=== PATIENT | male | born 1935 | race Caucasian/White ===

== ENCOUNTER → 2016-12-05 | Outpatient (CLI) | payer OTHER ==
[~2016-12-05] MED LIST: ASPI81TA28 PO; CARV6.252 PO; CEPH500C2 PO; LISI-729 PO; PRAV40TA2 PO; RIVA1TAB4 PO
[2016-12-05 13:30] LABS: INR 1.2 (0.9-1.1); PROTHROMBIN TIME (PATIENT) 12.7 SECONDS (9.0-12.0)
[2016-12-05 13:57] LABS: MEAN CELL VOLUME 90.7 fL (80-100); MEAN CORPUSCULAR HEMOGLOBIN 31.3 pg (25-34); MEAN CORPUSCULAR HGB CONC 34.5 g/dl (32-36); MEAN PLATELET VOLUME 12.2 fL (7.4-10.4); PLATELET COUNT 121 K/uL (130-400); PLT ESTIMATE DECREASED; RED BLOOD COUNT 4.41 M/uL (4.7-6.1); WHITE BLOOD COUNT 7.43 K/uL (4.8-10.8)
[2016-12-05 14:07] LABS: BLOOD UREA NITROGEN 14 mg/dl (7-18); BUN/CREATININE RATIO 17.9 (10-20); CALCIUM 8.7 mg/dl (8.5-10.1); CARBON DIOXIDE 28 mmol/L (21-32); CHLORIDE 109 mmol/L (98-107); CREATININE 0.78 mg/dl (0.60-1.40); GLUCOSE 92 mg/dl (70-99); POTASSIUM 4.2 mmol/L (3.5-5.1); SODIUM 141 mmol/L (136-145)
== END | disposition home or self-care (01) ==
LOC: C.LAB1850 11:58
PROVIDERS: ATTEND Internal Medicine Clinical Cardiac Electrophysiology
DX: I42.9 Cardiomyopathy, unspecified (principal)

== ENCOUNTER 2016-12-13 06:27 | Observation (INO) | payer OTHER ==
[~2016-12-13] VITALS: Ht 172.7 cm; Wt 75.1 kg
[2016-12-13] VITALS (18 sets, daily range): BP systolic 92–154; BP diastolic 60–102; PULSE 57–85; TEMP 36.4–37.2; O2SAT 92–99; Ht 172.7 cm; Wt 75.1 kg
[~2016-12-13 06:27] MED LIST changes: +CEFAZOLIN 1000MG/55 ML D5W IV SCH; -CEPH500C2 PO; +LACTATED RINGER'S 1000ML 1,000 ML IV SCH
[2016-12-13] MEDS ORDERED: FENTANYL CITRATE INJ 50 MCG/1 ML 2 ML VIAL ONE ×2 (07:26→16:54)
[2016-12-13] MEDS ORDERED: MIDAZOLAM HCL 5 MG/ML 1 ML VIAL ONE ×2 (07:26→16:54)
[2016-12-13] MEDS ORDERED: BACITRACIN 50000 UNIT VIAL ONE ×2 (07:27→16:42)
[2016-12-13] MEDS ORDERED: BUPIVACAINE 0.5 % 5 MG/1 ML MPF 30ML VIAL ONE ×2 (07:27→16:49)
[2016-12-13] MEDS ORDERED: LIDOCAINE HCL 1% 20 ML VIAL ONE ×2 (07:27→16:42)
--- NOTE | 2016-12-13 07:36 | History & Physical Bridge Note ---
H&P Re-Evaluation Bridge Note: I have examined the patient, reviewed the History & Physical and in the interval since the performance of the History & Physical I have noted the following changes of clinical significance: Discussed R/B/A with the patient and family. No changes noted
--- NOTE | 2016-12-13 07:38 | Procedure Note ---
Pre-Mod Sedation Assessment General Date of Moderate Sedation: Dec 13, 2016. Vital Signs: Vital Signs Past 12 Hours Date Time Temp Pulse Resp B/P (MAP) Pulse Ox O2 Delivery O2 Flow Rate FiO2 12/13/16 06:38 36.4 60 18 121/78 (92) 98 Room Air Review Cardiovascular: regular rate, rhythm Airway Class: III Pre-Sedation Airway Assessment Oral Cavity: Dentures Able to Visualize Vocal Cords: No Short Thick Neck: No Hx of Sleep Apnea: No Smoking Status: Never Smoker Mallampati Classification: Class III ASA Classification: Class III Procedure Planning Contraindications-for Mod Sed: None Yes Notes The planned sedation has been discussed with the patient and consent obtained. I have identified the patient, determined the appropriateness of sedation and have assessed the patient immediately prior to the procedure. All medicine(s) and interventions are by my order.
[2016-12-13] MEDS ORDERED: ACETAMINOPHEN 325 MG TAB PO PRN (10:00)
[2016-12-13] MEDS ORDERED: OXYCODONE HCL IR 5 MG TAB (IMMEDIATE RELEASE) PO PRN (10:15)
[2016-12-13] MEDS ORDERED: IV FLUIDS COMPLETED PRN (13:45)
[2016-12-13] MEDS ORDERED: PNEUMOCOCCAL ADMINISTRATION CHARGE ONE (14:00)
[2016-12-13] MEDS ORDERED: PNEUMOCOCCAL POLYSACCHARIDES 25 MCG/0.5 ML VIAL/SYR IM. ONE (14:00)
--- NOTE | 2016-12-13 16:07 | Procedure Note ---
Post-Mod Sedation Assessment General Date of Moderate Sedation Dec 13, 2016. Vital Signs: Vital Signs Past 12 Hours Date Time Temp Pulse Resp B/P (MAP) Pulse Ox O2 Delivery O2 Flow Rate FiO2 12/13/16 15:53 36.4 72 18 140/80 (100) 97 12/13/16 11:45 36.4 60 17 127/84 (98) 98 Room Air 12/13/16 11:20 60 16 141/86 (104) 99 Room Air 12/13/16 11:20 36.4 60 17 127/84 98 Room Air 12/13/16 11:01 60 18 127/75 (92) 95 Room Air 12/13/16 10:45 60 18 98/72 (81) 95 Room Air 12/13/16 10:30 60 18 128/72 (90) 95 Room Air 12/13/16 10:15 60 16 116/71 (86) 97 Room Air 12/13/16 10:00 60 16 104/62 (76) 97 Room Air 12/13/16 09:55 Room Air 12/13/16 09:50 Room Air 12/13/16 09:45 60 16 106/68 (81) 97 Room Air 12/13/16 06:38 36.4 60 18 121/78 (92) 98 Room Air Review - Discharge Criteria Vital Signs Stable: Yes Alert/Oriented/Conversant: Yes Returned to Baseline Mental St: Yes Nausea Absent/Minimal: Yes Pain/Discomfort/Absent/Minimal: Yes Normal/Baseline Respirations: Yes Active Bleeding?: No Pt Received D/C Instructions: N/A Prescriptions Given: None Specific Proced. D/C Criteria Distal Pulses Present (Cardiac: N/A Groin site assessed-Card Cath: N/A Voided Prior To Discharge: N/A Discharged Patients Adult Escort/Transportation: Yes
[2016-12-13] MEDS: CEFAZOLIN IV 1,000 MG in DEXTROSE 5% 50ML 50 ML IV SCH (16:08)
--- NOTE | 2016-12-13 16:14 | Procedure Note ---
Procedure Note Date of Service Dec 13, 2016. Procedure Note Procedure performed: Upgrade of dual-chamber permanent pacemaker to biventricular ICD Staff loan review analyst:Ambrose James Indication: The patient is an 81-year-old gentleman who previously undergone implantation of a dual-chamber permanent pacemaker for AV block. He was noted recently to have evidence of reduced LV systolic function is well symptoms associated with 100 percent ventricular pacing. He has been on guideline directed medical therapy. He has not had any revascularization in this 90 days nor suffer myocardial infarction past 40 days. He has an anticipated longevity greater than 1 year. Based on his degree of LV systolic function is need for continued ventricular pacing he was advised to consider an upgrade to a biventricular ICD. He has noted be in permanent atrial fibrillation. Procedure in detail: The patient was informed of the risks benefits and alternatives to the intended procedure and he wished to proceed. He was taken to the electrophysiology suite in a fasting state. A preoperative antibiotic had been administered. The patient was monitored electrocardiographically throughout today's procedure and conscious sedation was administered per protocol. The left upper pectoral area is prepped and draped in usual sterile fashion. This area was anesthetized using subcutaneous menstruation of a xylocaine solution. An incision was made at this site and carried down to the previously implanted pulse generator. Electrocautery was also employed for dissection as well as for hemostasis. The previously implanted device and leads within free from the surrounding scar tissue. A partial capsulotomy was performed.. Subsequent to this maneuver the left axillary vein was accessed using modified Seldinger technique. Sheaths were placed over guidewires at this site use salt a passage of the pacing leads to the respective chambers under fluoroscopic guidance. This included right ventricular lead. Adequate sensing and threshold parameters were obtained prior to Active fixation of the lead to the endocardial surface. The proximal portion leads were then sutured the prepectoral fascia using nonabsorbable suture. A 2nd sheath was used to facilitate passage of the guiding catheter for engagement of the coronary sinus. The mid coronary sinus venography was then performed in order to identify suitable target vessel. Standard guidewire techniques were employed in order to deliver the pacing lead to the target vessel. Adequate sensing and threshold parameters were obtained in the absence of diaphragmatic stimulation confirmed prior to removal of the guiding sheath. The proximal portion of this lead was also sutured to the prepectoralis fascia. The device pocket was irrigated with antibiotic solution. The leads were then attached to the device. The device and leads were then placed in the pocket and pocket was closed in 3 layers of absorbable suture. Steri-Strips and sterile dressing were applied. The device was tested noninvasively prior to conclusion of the procedure. The patient tolerated procedure well there no immediate complications. Equipment used: New pulse generator: [employer]. Model number G1 4 8. Serial number [id number] New right ventricular lead: [employer]. Model number 0295. Serial 4. [id number] Retained right atrial lead: [employer]. Model 4. 479. Serial 4. [id number] Retained and capped right ventricular lead. [employer]. Model 4. 456. Serial 4. [id number] Explanted pulse generator: [employer]. Model number L1 0 1. Serial 7. [id number] Measure data: Right atrial lead: Patient was in permanent atrial fibrillation. Sensing of the atrial fib waves was 2.0 millivolts. Pacing impedance was 400 Ohms Right ventricular lead: R-waves measured 14.7 millivolts. Pacing threshold was 0.6 volts at 0 point 4 milliseconds with a pacing impedance of 619 Ohms Left ventricular lead: R-waves measured 25 millivolts. Pacing threshold was 2.6 volts at 1 millisecond with a pacing impedance of 1435 Ohms Impression: Successful upgrade of dual-chamber pacemaker to biventricular ICD
[2016-12-13] MEDS ORDERED: KEFZOL SPECIAL PROCEDURE STOCK 1 GM ADDVIAL IV ONE (16:47)
[2016-12-13] MEDS ORDERED: PRAVASTATIN SOD 40 MG TAB PO SCH (17:00)
--- NOTE | 2016-12-13 18:54 | Procedure Note ---
Procedure Note Date of Service Dec 13, 2016. Procedure Note Procedure performed: Evacuation of hematoma Staff undercoat sprayer:Ambrose James Indication: The patient is an 81-year-old gentleman who earlier this morning underwent revision of his pacemaker with an upgrade to a biventricular ICD. He was noted late in the afternoon who had developed a sizable hematoma. There was evidence of active bleeding at the incision in he was advised to undergo pocket exploration. Procedure detail: The patient was informed of the risks benefits and alternatives to the intended procedure he understood such which proceed. He was taken to the electrophysiology suite. Conscious sedation was administered per protocol the patient was monitored electrocardiographically throughout today's procedure. A preoperative antibiotic was also administered. The upper chest area was prepped and draped in usual sterile fashion. The previous incision was subsequently opened with sharp dissection. This was carried down to the device using electrocautery. Electrocautery was also employ for hemostasis. Hematoma was evacuated. The pocket was evaluated for evidence of bleeding and any small vessels were subsequently cauterized. The pocket was subsequently irrigated with saline and antibiotic solution. I hemostatic agent was also placed in the pocket. The device and leads were then placed back in the pocket. The pocket was subsequently closed with 3 layers of absorbable suture. Steri-Strips, sterile dressing and a pressure dressing were also applied. Patient tolerated procedure well there no immediate complications. Impression: Successful evacuation of pocket hematoma.
[2016-12-13] MEDS: CARVEDILOL 12.5 MG TAB PO SCH (21:10)
[2016-12-14] MEDS: CEFAZOLIN IV 1,000 MG in DEXTROSE 5% 50ML 50 ML IV SCH (00:42)
[2016-12-14 03:26] VITALS: BP 105/63; PULSE 75; TEMP 36.9; O2SAT 96
--- NOTE | 2016-12-14 06:40 | DIAGNOSTIC IMAGING REPORT ---
CHEST 2 VIEWS ROUTINE CLINICAL HISTORY: EXACT TIME ORDERED Evaluate for pneumothorax and lead placement COMPARISON STUDY: No previous studies for comparison. FINDINGS: . Bipolar cardiac pacemaker in good position. Leads are unremarkable in terms of location. Lungs are clear. No evidence pneumothorax. IMPRESSION: Permanent bipolar cardiac pacemaker in good position. No evidence of pneumothorax. The above report was generated using voice recognition software. It may contain grammatical, syntax or spelling errors. Electronically signed by: Jeffry Russo M.D. 12/14/2016 6:39 AM Dictated Date/Time: 12/14/2016 6:39 AM
[2016-12-14 08:26] VITALS: BP 118/73; PULSE 77; TEMP 37; O2SAT 97
[2016-12-14] MEDS: CARVEDILOL 12.5 MG TAB PO SCH (08:28)
[2016-12-14] MEDS ORDERED: ASPIRIN 81 MG ECTAB PO SCH (09:00)
[2016-12-14] MEDS ORDERED: LISINOPRIL 5 MG TAB PO SCH (09:00)
[2016-12-14] MEDS ORDERED: CEPH500C2 PO (09:27)
--- NOTE | 2016-12-14 09:29 | Discharge Instructions ---
Discharge Instructions Date of Service Dec 14, 2016. Admission Reason for Admission: CHF Discharge Discharge Diagnosis / Problem: CHF Discharge Goals Goal(s): Improve function Activity Recommendations Activity Limitations: as noted below Lifting Limitations: none Exercise/Sports Limitations: until after follow-up appointment May Resume Sexual Activity: when tolerated Shower/Bathe: keep incision dry Driving or Machine Use: resume 1 day after discharge No0 lifting left arm above shoudler or behind neck for 6 weeks. Keep wound dry and steri-strip intact until f/u next week. May remove outer bulky dressing in AM. . Current Hospital Diet Patient's current hospital diet: AHA Diet (Heart Healthy) Discharge Diet Recommended Diet: AHA Diet (Heart Healthy) Pending Studies Studies pending at discharge: no Medical Emergencies . Who to Call and When: Medical Emergencies: If at any time you feel your situation is an emergency, please call 911 immediately. . Non-Emergent Contact Non-Emergency issues call your: [employer] Call Non-Emergent contact if: you have a fever, temperature is above 100.5, your pain is not controlled, your pain is worsening, your pain is unusual for you, your pain is concerning you, wound has increased drainage, wound has increased redness, wound has increased pain, you have any medication questions . . "Provider Documentation" section prepared by Simba James. . VTE Core Measure Inpt VTE Proph given/why not?: Treatment not indicated
[2016-12-14] MEDS ORDERED: CEFAZOLIN SOD 1000MG/55 ML D5W IV ONE (09:30)
[2016-12-14] MEDS ORDERED: CEFAZOLIN IV 1,000 MG in DEXTROSE 5% 50ML 50 ML IV SCH (10:00)
[2016-12-14 10:57] VITALS: BP 118/73; PULSE 77; TEMP 37; O2SAT 97
--- NOTE | 2016-12-18 08:45 | Discharge Summary ---
Discharge Summary Admission Date: Dec 13, 2016 at 10:08 Discharge Date: Dec 14, 2016 Discharge Disposition: Home Primary Diagnosis: Congestive heart failure Secondary Diagnoses/Problems: Social History Problems: (1) Status post Mohs surgery Status: Acute Procedures: 1. Upgrade of dual-chamber pacemaker to biventricular ICD. 2. Evacuation of pocket hematoma Discharge Instructions Last Recorded Wt (Kilograms): 75.100 Activity Recommendations: limitations as noted below Return to School/Work: no limitations Diet At Discharge: resume previous diet Allergies: Coded Allergies: No Known Allergies (Unverified , 03/08/15) Discharge Medications: Resume previous medications with the exception of Xarelto. Five-day treatment course of Keflex. Home Health Services: none Special Care: Call your doctor if: * Temperature above 101 degrees * Pain not relieved by pain medicine ordered * There is increased drainage or redness from any incision * You have any unanswered questions or concerns. Avoid all tobacco products. If you need help to stop smoking, call [place]'s FREE QUITLINE at . This is a free call. Admission HPI The patient is an 81-year-old gentleman with a prior history of cardiac conduction disease who had undergone implantation of a dual-chamber permanent pacemaker. He was noted on routine follow-up to have reduction in the left ventricular function and be subjected to 100% right ventricular pacing. Based on his reduced ejection fraction and need for pacing is felt to be a good candidate for an upgrade to a biventricular ICD. Admission Physical Exam Additional Comments: At the time of discharge the patient does not have any evidence of hematoma or drainage from the incision. Hospital Course The patient was admitted on the 13 of December and underwent an uncomplicated upgrade to a biventricular ICD. Several hours after the procedure the patient was noted to have rapid development of a hematoma at the implant site. Based on the rapid nature of the presumed bleeding and size of the hematoma he was brought urgently back to the electrophysiology suite for exploration of the pocket. The pocket was evacuated in all bleeding addressed. Patient was sent back to the unit for additional antibiotics and monitoring. On the day of discharge there was no evidence of hematoma. An x-ray demonstrated good lead position without evidence of pneumothorax. Device interrogation revealed normal device function with stable lead parameters. Total time spent on discharge = This includes examination of the patient, discharge planning, medication reconciliation, and communication with other providers.
== END 2016-12-14 11:34 | disposition home or self-care (01) ==
LOC: C.ACU 06:27 → EDBEDREQ 09:48 → C.2E 10:08 → INTOOBSV 10:08 → ENRESERV 10:44
PROVIDERS: ADMIT Internal Medicine Clinical Cardiac Electrophysiology; ATTEND Internal Medicine Clinical Cardiac Electrophysiology
DX: I25.5 Ischemic cardiomyopathy (principal); I65.29 Occlusion and stenosis of unspecified carotid artery; I51.9 Heart disease, unspecified; I25.2 Old myocardial infarction; Z95.0 Presence of cardiac pacemaker; I48.0 Paroxysmal atrial fibrillation; I25.10 Atherosclerotic heart disease of native coronary artery without angina pectoris; E78.5 Hyperlipidemia, unspecified; Z95.5 Presence of coronary angioplasty implant and graft; Z98.49 Cataract extraction status, unspecified eye; Z82.49 Family history of ischemic heart disease and other diseases of the circulatory system; Z82.5 Family history of asthma and other chronic lower respiratory diseases; Z79.82 Long term (current) use of aspirin; Z79.01 Long term (current) use of anticoagulants

== ENCOUNTER 2020-11-27 03:19 | Inpatient (IN) ==
[2020-11-27] MEDS ORDERED: SODIUM CHLORIDE 0.9% 1000ML 1,000 ML IV ONE (03:34)
[2020-11-27] MEDS ORDERED: ONDANSETRON INJ 2 MG/ML 2 ML VIAL IV STA (03:34)
[2020-11-27] MEDS ORDERED: PANTOprazole 80 MG in DEXTROSE 5% 100 ML IV STA (03:34)
--- NOTE | 2020-11-27 03:37 | Emergency Department Note ---
Impression & Plan Small bowel obstruction, Bloody emesis, Femoral hernia ED Provider Note Name: ED HICKMAN Age: 85 Sex: M Arrives Via: Walk-In Informant: Patient, ED Provider: Nhan Becker MD Chief Complaint: Vomiting Impression: See Above Medical Decision Making: Pleasant 85 yr old male without history of abdominal surgery though has extensive cardiac history and on anticoagulation for afib. Worsening vomiting the last few days with inability to keep down food though able to tolerate his medications. This evenign with blood in emesis. Labs obtained and KUB concerning for obstructions. CT with SBO secondary to right femoral hernia. No evidence ischemia by CT. There is mild lactic elevation which I suspect is more dehydration related rather than ischemic gut at this time, especially given he does not in any way appear uncomfortable for something ischemic. NG tube placed with large gastric outs and patient feeling better with that. Protonix IV given as well. Gen Surg down to evaluate patient and will be admitted to medicine given his complex medical history. Prior Medical Record and Triage/Nursing Notes reviewed by Me Additional history obtained from chart. Differentials:Gastroenteritis, food borne illness, infections, appendicitis, diverticulitis, inflammatory bowel disease, obstruction, GI bleed, biliary pathology, volvulus, as well as other pathologies. Vital Signs: reviewed and remarkable for no significant abnormalities Interventions: saline lock, zofran iv Labs:Reviewed and remarkable for no significant abnormalities Imaging:Radiologist interpretation reviewed by me: SBO transition point right femoral hernia Xray Results per my interpretation: KUB: Obstructive bowel pattern Consults:Sim Stevesnon PA-C Gen Surg, Dr Elisha Mathews Hospitalist Plan: Disposition:Hospitalization. Condition: Good History of Present Illness:85 yr old male arrives for evaluation of hematemesis. Patient with nausea, vomiting and weakness for the last 3 days. Gradually worsening. Unable to eat/drink due to vomiting. Associated with fatigue. Notes he vomited up blood this evening. No large amounts of blood, just streaked emesis. He is on Xarelto for afib. No fevers, chills, syncope, back pain, leg swelling, bruising, headache, chest pain, sob, nor other symptoms. No history of abdominal issues. No previous abdominal surgeries. ROS: See above HPI for pertinent positives & negatives. A total of 10 systems reviewed and were otherwise negative. Past Medical History:See Below Past Surgical History:See Below Family History:See Below Social History:See Below Home Medications:See Below Allergies:NKDA Vitals:Blood Pressure: 131/79, Pulse 72, RR 18, T 36.5C, O2 97% on RA Physical Exam: GENERAL: Patient is uncomfortable appearing and in minimal distress. EYES: No scleral icterus, unremarkable pupils. ENT: Mucous membranes moist, no nasal congestion. NECK: No masses appreciated, nomeningismus, trachea is midline. RESPIRATORY: No dyspnea. Clear to auscultation and equal bilaterally. No wheeze, no rhonchi. CARDIOVASCULAR: Irregular.No murmurs, rubs, gallops appreciated. GASTROINTESTINAL: Soft and mildly distended with hyperactive bowel, no significant TTP BACK: No midline tenderness, no CVA tenderness EXTREMITIES: Normal motion all extremities, no cyanosis, no edema. NEUROLOGIC: Alert and oriented, no acute motor or sensory deficits, no focal weakness, cranial nerves grossly intact. SKIN: No rash, no jaundice, no diaphoresis. PSYCH: Appropriate GCS: 15 ED Course: Times/Reassessments: much improved with NG tube Nhan Becker MD Past Med/Surg History Medical History (Updated 11/28/20 @ 06:17 by Nhan Becker MD) Atrial fibrillation HX OF PRIOR TO ICD IMPLANT Basal cell carcinoma of face Hearing deficit Hyperlipidemia Hypertension Myocardial Infarction 2007 Surgical History (Updated 11/27/20 @ 13:41 by Erendira Sandoval, DO) H/O bilateral cataract extraction History of cardiac cath 2008 @ [facility] History of colonoscopy History of heart artery stent 2008 X1 @ [facility] STENT FOLLOWS W DR. BAJWA IN [place], [place] History of tooth extraction ALL TEETH ON TOP ICD (implantable cardioverter-defibrillator) in place HX A FIB 12/13/2016 @ [facility] DR. BAEZ S/P Mohs surgery for basal cell carcinoma ON FACE Social History Smoking Status: Never smoker Second Hand Exposure: No; Hx Alcohol Use: No Hx Substance Use: No Preferred Language: Slovak Communication Ability: Effective Natural History Collections Curator Required: No Beliefs That Will Affect Care: None Current Living Situation: Spouse Feels Safe at Home: Yes Safety Concerns: Feels Safe At This Time Assistive Devices: Denture - Upper, Glasses and Hearing Aid - Bilateral Allergies Allergies Allergy/AdvReac Type Severity Reaction Status Date / Time No Known Allergies Allergy Verified 11/27/20 06:49 Home Meds Home Medications Medication Instructions Recorded Confirmed amoxicillin 500 mg capsule 2,000 mg PO UD PRN 12/11/17 11/27/20 carvedilol 12.5 mg tablet 12.5 mg PO BID 12/11/17 11/27/20 lisinopril 5 mg tablet 5 mg PO DAILY 12/11/17 11/27/20 peg 400-propylene glycol 0.4 %-0.3 1 drp OPHTHALMIC (EYE) TID PRN 12/11/17 11/27/20 % eye drops (Systane Ultra) pravastatin 40 mg tablet 40 mg PO HS 12/11/17 11/27/20 rivaroxaban 20 mg tablet (Xarelto) 20 mg PO PM 12/11/17 11/27/20 vit C,E,zinc,copper-hnkpt1j 250 1 cap PO QAM 12/11/17 11/27/20 mg-lutein 5 mg-zeaxanthin 1 mg capsule (Ocuvite Adult 50 Plus) ascorbic acid (vitamin C) 500 mg 500 mg PO QPM 02/03/18 11/27/20 tablet (Vitamin C) aspirin 81 mg tablet,delayed 81 mg PO QAM 02/03/18 11/27/20 release ferrous sulfate 325 mg (65 mg 325 mg PO BID 02/03/18 11/27/20 iron) tablet,delayed release pantoprazole 40 mg tablet,delayed 20 mg PO DAILY 11/27/20 11/27/20 release Results & Data (ED) Vital Signs Vital Signs - 24 hr 11/27/20 03:25 11/27/20 03:31 11/27/20 04:00 Temperature 36.5 C Temperature Source Oral Pulse Rate 77 80 78 Pulse Rate from SpO2 Sensor 68 72 Respiratory Rate 20 21 24 Blood Pressure 119/76 144/81 H 137/78 Blood Pressure Mean 90 102 97 Pulse Oximetry 97 95 97 Oxygen Delivery Method Room Air Sepsis New/Unexplained Change in Mental Status N/A Sepsis Action Taken by Nursing No Action Required Laboratory Data Result diagrams: 11/27/20 17:27 11/27/20 17:27 Lab Results 11/27/20 11/27/20 11/27/20 Range/Units 03:30 03:30 03:30 WBC 10.60 (4.8-10.8) K/uL RBC 4.94 (4.7-6.1) M/uL Hgb 16.2 (14.0-18.0) g/dL Hct 47.2 (42-52) % MCV 95.5 (80-100) fL MCH 32.8 (25-34) pg MCHC 34.3 (32-36) g/dL RDW Std Deviation 48.2 H (36.4-46.3) fL RDW Coeff of Taylor 13.7 (11.5-14.5) % Plt Count 148 (130-400) K/uL MPV 12.4 H (7.4-10.4) fL Neutrophils % (Manual) 32.2 % Lymphocytes % (Manual) 30.4 % Reactive Lymphs % (Man) 28.7 % Monocytes % (Manual) 8.7 % Neutrophils # (Manual) 3.41 (1.4-6.5) K/uL Total Absolute Neuts 3.41 (1.4-6.5) K/uL Lymphocytes # (Manual) 3.22 (1.2-3.4) K/uL Reactive Lymphs # 3.04 K/uL Total Abs Lymphocytes 6.26 H (1.2-3.4) K/uL Monocytes # (Manual) 0.92 H (0.11-0.59) K/uL Ovalocytes 1+ PT 16.1 H (9.0-12.0) Seconds INR 1.6 H (0.9-1.1) APTT 37.8 H (21.0-31.0) Seconds PTT Ratio 1.4 Sodium 141 (136-145) mmol/L Potassium 4.2 (3.5-5.1) mmol/L Chloride 107 (98-107) mmol/L Carbon Dioxide 29 (21-32) mmol/L Anion Gap 5.0 (3-11) BUN 43 H (7-18) mg/dl Creatinine 1.29 (0.6-1.4) mg/dl Est Cr Clr Drug Dosing Not Reportable Est GFR ( Amer) 58.6 ml/min Est GFR (Non-Af Amer) 50.6 ml/min BUN/Creatinine Ratio 33.6 H (10-20) Glucose 153 H (70-99) mg/dl Lactate (0.4-2.0) mmol/L Calcium 9.5 (8.5-10.1) mg/dl Magnesium 2.5 H (1.8-2.4) mg/dl Total Bilirubin 2.2 H (0.2-1) mg/dl Direct Bilirubin 0.6 H (0-0.2) mg/dl AST 37 (15-37) U/L ALT 26 (12-78) U/L Alkaline Phosphatase 69 (45-117) U/L Troponin I 0.038 (0-0.045) ng/ml Total Protein 7.9 (6.4-8.2) gm/dl Albumin 4.2 (3.4-5.0) gm/dl Lipase 64 L (73-393) U/L COVID-19 Eval Order SARS-CoV-2 (PCR) (Negative) Blood Type Antibody Screen 11/27/20 11/27/20 11/27/20 Range/Units 05:16 05:16 05:45 WBC (4.8-10.8) K/uL RBC (4.7-6.1) M/uL Hgb 14.6 (14.0-18.0) g/dL Hct 42.6 (42-52) % MCV (80-100) fL MCH (25-34) pg MCHC (32-36) g/dL RDW Std Deviation (36.4-46.3) fL RDW Coeff of Taylor (11.5-14.5) % Plt Count (130-400) K/uL MPV (7.4-10.4) fL Neutrophils % (Manual) % Lymphocytes % (Manual) % Reactive Lymphs % (Man) % Monocytes % (Manual) % Neutrophils # (Manual) (1.4-6.5) K/uL Total Absolute Neuts (1.4-6.5) K/uL Lymphocytes # (Manual) (1.2-3.4) K/uL Reactive Lymphs # K/uL Total Abs Lymphocytes (1.2-3.4) K/uL Monocytes # (Manual) (0.11-0.59) K/uL Ovalocytes PT (9.0-12.0) Seconds INR (0.9-1.1) APTT (21.0-31.0) Seconds PTT Ratio Sodium (136-145) mmol/L Potassium (3.5-5.1) mmol/L Chloride (98-107) mmol/L Carbon Dioxide (21-32) mmol/L Anion Gap (3-11) BUN (7-18) mg/dl Creatinine (0.6-1.4) mg/dl Est Cr Clr Drug Dosing Est GFR ( Amer) ml/min Est GFR (Non-Af Amer) ml/min BUN/Creatinine Ratio (10-20) Glucose (70-99) mg/dl Lactate (0.4-2.0) mmol/L Calcium (8.5-10.1) mg/dl Magnesium (1.8-2.4) mg/dl Total Bilirubin (0.2-1) mg/dl Direct Bilirubin (0-0.2) mg/dl AST (15-37) U/L ALT (12-78) U/L Alkaline Phosphatase (45-117) U/L Troponin I (0-0.045) ng/ml Total Protein (6.4-8.2) gm/dl Albumin (3.4-5.0) gm/dl Lipase (73-393) U/L COVID-19 Eval Order Covid19 at [facility] SARS-CoV-2 (PCR) NEGATIVE (Negative) Blood Type Antibody Screen 11/27/20 11/27/20 Range/Units 05:46 06:05 WBC (4.8-10.8) K/uL RBC (4.7-6.1) M/uL Hgb (14.0-18.0) g/dL Hct (42-52) % MCV (80-100) fL MCH (25-34) pg MCHC (32-36) g/dL RDW Std Deviation (36.4-46.3) fL RDW Coeff of Taylor (11.5-14.5) % Plt Count (130-400) K/uL MPV (7.4-10.4) fL Neutrophils % (Manual) % Lymphocytes % (Manual) % Reactive Lymphs % (Man) % Monocytes % (Manual) % Neutrophils # (Manual) (1.4-6.5) K/uL Total Absolute Neuts (1.4-6.5) K/uL Lymphocytes # (Manual) (1.2-3.4) K/uL Reactive Lymphs # K/uL Total Abs Lymphocytes (1.2-3.4) K/uL Monocytes # (Manual) (0.11-0.59) K/uL Ovalocytes PT (9.0-12.0) Seconds INR (0.9-1.1) APTT (21.0-31.0) Seconds PTT Ratio Sodium (136-145) mmol/L Potassium (3.5-5.1) mmol/L Chloride (98-107) mmol/L Carbon Dioxide (21-32) mmol/L Anion Gap (3-11) BUN (7-18) mg/dl Creatinine (0.6-1.4) mg/dl Est Cr Clr Drug Dosing Est GFR ( Amer) ml/min Est GFR (Non-Af Amer) ml/min BUN/Creatinine Ratio (10-20) Glucose (70-99) mg/dl Lactate 2.1 H* (0.4-2.0) mmol/L Calcium (8.5-10.1) mg/dl Magnesium (1.8-2.4) mg/dl Total Bilirubin (0.2-1) mg/dl Direct Bilirubin (0-0.2) mg/dl AST (15-37) U/L ALT (12-78) U/L Alkaline Phosphatase (45-117) U/L Troponin I (0-0.045) ng/ml Total Protein (6.4-8.2) gm/dl Albumin (3.4-5.0) gm/dl Lipase (73-393) U/L COVID-19 Eval Order SARS-CoV-2 (PCR) (Negative) Blood Type A Positive Antibody Screen NEGATIVE Administered Medications Pantoprazole Sodium 40 mg/ (Dextrose) 100 mls @ 20 mls/hr IV Q5H SENG Stop: 12/27/20 06:29 Last Admin: 11/28/20 04:41 Dose: 8 mg/hr, 20 mls/hr Documented by: [id number] Infusion: 11/28/20 04:39 Dose: 0 mg/hr, 0 mls/hr Documented by: [id number] Admin: 11/27/20 23:41 Dose: 8 mg/hr, 20 mls/hr Documented by: [id number] Infusion: 11/27/20 23:40 Dose: 0 mg/hr, 0 mls/hr Documented by: [id number] Admin: 11/27/20 18:29 Dose: 8 mg/hr, 20 mls/hr Documented by: [id number] Infusion: 11/27/20 17:44 Dose: 8 mg/hr, 20 mls/hr Documented by: [id number] Admin: 11/27/20 12:44 Dose: 8 mg/hr, 20 mls/hr Documented by: [id number] Infusion: 11/27/20 12:44 Dose: 8 mg/hr, 20 mls/hr Documented by: [id number] Admin: 11/27/20 08:39 Dose: 8 mg/hr, 20 mls/hr Documented by: [id number] Promethazine HCl 6.25 mg/ (Sodium Chloride) 50.25 mls @ 201 mls/hr IV Q6H PRN PRN Reason: Nausea And Vomiting Stop: 12/27/20 08:17 Last Infusion: 11/27/20 09:53 Dose: 0 mls/hr Documented by: [id number] Admin: 11/27/20 09:29 Dose: 201 mls/hr Documented by: [id number] Sodium Chloride (1/2 Nss) 1,000 mls @ 50 mls/hr IV .Q20H SENG Stop: 12/28/20 01:29 Last Admin: 11/28/20 01:59 Dose: 50 mls/hr Documented by: [id number] Metoprolol Tartrate (Metoprolol Tartrate 1 Mg/Ml Vial) 2.5 mg IV Q6 SENG Stop: 12/27/20 11:59 Last Admin: 11/28/20 06:09 Dose: 2.5 mg Documented by: [id number] Admin: 11/27/20 23:48 Dose: 2.5 mg Documented by: [id number] Admin: 11/27/20 18:29 Dose: 2.5 mg Documented by: [id number] Admin: 11/27/20 12:44 Dose: 2.5 mg Documented by: [id number] Discontinued Medications Pantoprazole Sodium 80 mg/ (Dextrose) 100 mls @ 400 mls/hr IV ONE STA Stop: 11/27/20 03:48 Last Infusion: 11/27/20 04:15 Dose: 0 mls/hr Documented by: [id number] Admin: 11/27/20 03:54 Dose: 400 mls/hr Documented by: [id number] Sodium Chloride (Nss 1000ml) 1,000 mls @ 999 mls/hr IV .Q1H1M ONE Stop: 11/27/20 04:34 Last Infusion: 11/27/20 05:22 Dose: 0 mls/hr Documented by: [id number] Admin: 11/27/20 03:45 Dose: 999 mls/hr Documented by: [id number] Lorazepam (Ativan) 0.5 mg in 1 mls @ 1 mls/min IV NOW STA Stop: 11/27/20 04:52 Last Admin: 11/27/20 04:59 Dose: 1 mls/min Documented by: [id number] Sodium Chloride (1/2 Nss) 1,000 mls @ 50 mls/hr IV .Q20H STA Stop: 11/28/20 01:31 Last Infusion: 11/28/20 01:58 Dose: 0 mls/hr Documented by: [id number] Admin: 11/27/20 05:36 Dose: 50 mls/hr Documented by: [id number] Phytonadione 1 mg/ Sodium (Chloride) 50.1 mls @ 100.5 mls/hr IV 0900 ONE Stop: 11/27/20 09:29 Last Infusion: 11/27/20 10:09 Dose: 0 mls/hr Documented by: [id number] Admin: 11/27/20 09:26 Dose: 100.5 mls/hr Documented by: [id number] Ioversol (Optiray 320 100ml) 93 ml IV ONCE ONE Stop: 11/27/20 04:50 Last Admin: 11/27/20 04:50 Dose: 93 ml Documented by: [id number] Ondansetron HCl (Ondansetron Inj 2 Mg/Ml 2 Ml Vial) 4 mg IV NOW STA Stop: 11/27/20 03:35 Last Admin: 11/27/20 03:54 Dose: 4 mg Documented by: [id number] Discharge Plan Visit Data Chief Complaint: Vomiting Stated Complaint: VOMITING BLOOD, ABD PAIN ED Provider: Nhan Becker Discharge Problem: Small bowel obstruction, Bloody emesis, Femoral hernia Patient Disposition: Admitted As Inpatient Discharge Instructions Interventions: ED Discharge Assessment Last Done: 11/27/20 07:15 Discharge Problem: Bloody emesis Qualifiers: Nausea presence: with nausea Qualified Code(s): K92.0 - Hematemesis Femoral hernia Qualifiers: Obstruction and gangrene presence: with obstruction but without gangrene Laterality: unilateral Recurrence: non-recurrent Qualified Code(s): K41.30 - Unilateral femoral hernia, with obstruction, without gangrene, not specified as recurrent
[2020-11-27 03:53] LABS: INR 1.6 (0.9-1.1); Partial Thromboplastin Ratio 1.4; Partial Thromboplastin Time 37.8 Seconds (21.0-31.0); Prothrombin Time 16.1 Seconds (9.0-12.0)
[2020-11-27 03:59] LABS: Alanine Aminotransferase 26 U/L (12-78); Albumin Level 4.2 gm/dl (3.4-5.0); Aspartate Aminotransferase 37 U/L (15-37); BUN Creatinine Ratio 33.6 (10-20); Bilirubin Direct 0.6 mg/dl (0-0.2); Blood Urea Nitrogen 43 mg/dl (7-18); Calcium 9.5 mg/dl (8.5-10.1); Carbon Dioxide 29 mmol/L (21-32); Chloride 107 mmol/L (98-107); Est GFR (African American) 58.6 ml/min; Est GFR (Non-African American) 50.6 ml/min; Glucose 153 mg/dl (70-99); Lipase 64 U/L (73-393); Magnesium 2.5 mg/dl (1.8-2.4); Potassium 4.2 mmol/L (3.5-5.1); Sodium 141 mmol/L (136-145)
[2020-11-27 04:00] LABS: Hematocrit (blood only) 47.2 % (42-52); Hemoglobin 16.2 g/dL (14.0-18.0); Mean Corpuscular Hemoglobin 32.8 pg (25-34); Mean Corpuscular Hgb Conc 34.3 g/dL (32-36); Mean Corpuscular Volume 95.5 fL (80-100); Mean Platelet Volume 12.4 fL (7.4-10.4); Platelet Count 148 K/uL (130-400); RDW Coefficient of Variation 13.7 % (11.5-14.5); RDW Standard Deviation 48.2 fL (36.4-46.3); Red Blood Count 4.94 M/uL (4.7-6.1)
[2020-11-27 04:01] LABS: ALC (manual) 6.26 K/uL (1.2-3.4); ANC (manual) 3.41 K/uL (1.4-6.5); Lymphocytes # (manual) 3.22 K/uL (1.2-3.4); Lymphocytes % (manual) 30.4 %; Monocytes # (manual) 0.92 K/uL (0.11-0.59); Monocytes % (manual) 8.7 %; Neutrophils # (manual) 3.41 K/uL (1.4-6.5); Neutrophils % (manual) 32.2 %; Ovalocytes 1+; Reactive Lymphocytes # (manual) 3.04 K/uL; Reactive Lymphocytes % (manual) 28.7 %
[2020-11-27 04:04] LABS: Alkaline Phosphatase 69 U/L (45-117); Bilirubin,Total 2.2 mg/dl (0.2-1); Total Protein 7.9 gm/dl (6.4-8.2); Troponin I 0.038 ng/ml (0-0.045)
[2020-11-27] MEDS ORDERED: OPTIRAY 320 100ml IV ONE (04:49)
[2020-11-27] MEDS ORDERED: LORazepam 0.5 MG/1 ML VIAL IV STA (04:51)
--- NOTE | 2020-11-27 05:28 | History & Physical Report ---
Date of Service November 27, 2020 Assessment & Plan (1) UGIB (upper gastrointestinal bleed): Plan: Secondary to SBO In the setting of NOAC use Differentials include : Tamra-Dave tear, esophagitis, gastritis Patient currently hemodynamically stable. chronic systolic heart failure secondary to ischemic cardiomyopathy (EF 40 to 45%, TTE 2019) status post ICD, patient on the dry side CAD status post stent/PVD SSS sp post PPM on Xarelto, paced rhythm hypertension, stable chronic anemia, hemoglobin better than baseline likely secondary to hemoconcentration Medical telemetry IV PPI Appropriate to hold NOAC for now given UGI B Trend H&H, transfuse PRBC if hemoglobin less than 8 and or for symptomatic anemia GI consult if with subsequent hemoglobin drop Continue NGT decompression Surgery consult Re: SBO (Patient already evaluated at the ER by surgery provider business education instructor.) Check hemoglobin A1c DVT prophylaxis. SCDs while Xarelto on hold RE GI bleed Full code Patient's requesting updates for providers. Ms. Soria Bryant, contact #[phone]. Text document was generated using [email or web address] voice recognition software. It may contain grammatical or spelling errors. Kindly contact undersigned for clarification of any documentation item in question. History of Present Illness Chief Complaint: Abdominal pain, hematemesis Primary Care Provider: Ann Strauss MD History obtained from patient, family, and records. Limited history from patient secondary to lethargy post Ativan administration at the ER. Medical history significant for chronic systolic heart failure secondary to ischemic cardiomyopathy (EF 40 to 45%, TTE 2019) status post ICD, CAD status post stent/PVD, SSS sp post PPM on Xarelto, hypertension, hyperlipidemia, chronic anemia (baseline hemoglobin of 13), GERD, skin cancer as per records. Last confinement 2016 under Cardiology service for upgrade of dual-chamber p acemaker to biventricular ICD. Few days history of epigastric abdominal pain followed by nausea, emesis. No BM since last week as per . No chest pain, no S OB, no fever, no chills. Patient seen at PCPs office 2 days ago. Antiemetic as needed prescribed. Worsening abdominal pain and distention at home as per . Subsequent hematemesis noted a few hours ago as per . At the ER, IV PPI bolus administered. NGT inserted at the ER. Patient currently more comfortable as per . Medical History as above Surgical History : PPM, cataract surgery Family History : Prostate cancer, heart disease Personal/Social history : Non-smoker, no EtOH intake, retired [employer] employee Allergies Allergy/AdvReac Type Severity Reaction Status Date / Time No Known Allergies Allergy Verified 11/27/20 06:49 Home Medications Medication Instructions Recorded Confirmed Type amoxicillin 500 mg capsule 2,000 mg PO UD PRN 12/11/17 11/27/20 History carvedilol 12.5 mg tablet 12.5 mg PO BID 12/11/17 11/27/20 History lisinopril 5 mg tablet 5 mg PO DAILY 12/11/17 11/27/20 History peg 400-propylene glycol 0.4 %-0.3 1 drp OPHTHALMIC (EYE) TID PRN 12/11/17 11/27/20 History % eye drops (Systane Ultra) pravastatin 40 mg tablet 40 mg PO HS 12/11/17 11/27/20 History rivaroxaban 20 mg tablet (Xarelto) 20 mg PO PM 12/11/17 11/27/20 History vit C,E,zinc,copper-htotn3e 250 1 cap PO QAM 12/11/17 11/27/20 History mg-lutein 5 mg-zeaxanthin 1 mg capsule (Ocuvite Adult 50 Plus) ascorbic acid (vitamin C) 500 mg 500 mg PO QPM 02/03/18 11/27/20 History tablet (Vitamin C) aspirin 81 mg tablet,delayed 81 mg PO QAM 02/03/18 11/27/20 History release ferrous sulfate 325 mg (65 mg 325 mg PO BID 02/03/18 11/27/20 History iron) tablet,delayed release pantoprazole 40 mg tablet,delayed 20 mg PO DAILY 11/27/20 11/27/20 History release Past Med/Surg History Medical History Atrial fibrillation HX OF PRIOR TO ICD IMPLANT Basal cell carcinoma of face Hearing deficit Hyperlipidemia Hypertension Myocardial Infarction 2007 Surgical History H/O bilateral cataract extraction History of cardiac cath 2007 @ [facility] History of colonoscopy History of heart artery stent 2007 X1 @ [facility] STENT FOLLOWS W DR. BAJWA IN [place], [place] History of tooth extraction ALL TEETH ON TOP ICD (implantable cardioverter-defibrillator) in place HX A FIB 12/13/2016 @ [facility] DR. BAEZ S/P Mohs surgery for basal cell carcinoma ON FACE Social History Smoking Status: Never smoker Second Hand Exposure: No; Hx Alcohol Use: No Hx Substance Use: No Preferred Language: Albanian Communication Ability: Effective School Librarian Required: No Beliefs That Will Affect Care: None Current Living Situation: Spouse Feels Safe at Home: Yes Safety Concerns: Feels Safe At This Time Assistive Devices: Denture - Upper, Glasses and Hearing Aid - Bilateral Review of Systems Review of Systems: Could not be reliably obtained Physical Exam Physical Exam: GENERAL: Lethargic, comfortable, no respiratory distress SKIN: Pallor, warm HEENT: Pale palpebral conjunctivae, no ptosis, dry buccal mucosa, NGT in place NECK : Supple, no tenderness CHEST : CTA, no tenderness HEART : RRR, no obvious murmurs ABDOMEN: Some distention, nontender EXTREMITIES : No LE swelling/tenderness, no other conspicuous deformities noted NEUROLOGIC : Lethargic, no facial asymmetry, no other gross focality Results & Data Results & Data ([facility]) Vital Signs (Past 12 Hours) Vital Signs Temp Pulse Resp BP Pulse Ox 11/27/20 04:00 78 24 137/78 97 11/27/20 03:31 80 21 144/81 H 95 11/27/20 03:25 36.5 C 77 20 119/76 97 Laboratory Results Laboratory Results WBC 10.60 K/uL (4.8-10.8) 11/27/20 03:30 RBC 4.94 M/uL (4.7-6.1) 11/27/20 03:30 Hgb 16.2 g/dL (14.0-18.0) 11/27/20 03:30 Hct 47.2 % (42-52) 11/27/20 03:30 MCV 95.5 fL (80-100) 11/27/20 03:30 MCH 32.8 pg (25-34) 11/27/20 03:30 MCHC 34.3 g/dL (32-36) 11/27/20 03:30 RDW Std Deviation 48.2 fL (36.4-46.3) H 11/27/20 03:30 RDW Coeff of Taylor 13.7 % (11.5-14.5) 11/27/20 03:30 Plt Count 148 K/uL (130-400) 11/27/20 03:30 MPV 12.4 fL (7.4-10.4) H 11/27/20 03:30 Neutrophils % (Manual) 32.2 % 11/27/20 03:30 Lymphocytes % (Manual) 30.4 % 11/27/20 03:30 Reactive Lymphs % (Man) 28.7 % 11/27/20 03:30 Monocytes % (Manual) 8.7 % 11/27/20 03:30 Neutrophils # (Manual) 3.41 K/uL (1.4-6.5) 11/27/20 03:30 Total Absolute Neuts 3.41 K/uL (1.4-6.5) 11/27/20 03:30 Lymphocytes # (Manual) 3.22 K/uL (1.2-3.4) 11/27/20 03:30 Reactive Lymphs # 3.04 K/uL 11/27/20 03:30 Total Abs Lymphocytes 6.26 K/uL (1.2-3.4) H 11/27/20 03:30 Monocytes # (Manual) 0.92 K/uL (0.11-0.59) H 11/27/20 03:30 Ovalocytes 1+ 11/27/20 03:30 PT 16.1 Seconds (9.0-12.0) H 11/27/20 03:30 INR 1.6 (0.9-1.1) H 11/27/20 03:30 APTT 37.8 Seconds (21.0-31.0) H 11/27/20 03:30 PTT Ratio 1.4 11/27/20 03:30 Sodium 141 mmol/L (136-145) 11/27/20 03:30 Potassium 4.2 mmol/L (3.5-5.1) 11/27/20 03:30 Chloride 107 mmol/L (98-107) 11/27/20 03:30 Carbon Dioxide 29 mmol/L (21-32) 11/27/20 03:30 Anion Gap 5.0 (3-11) 11/27/20 03:30 BUN 43 mg/dl (7-18) H 11/27/20 03:30 Creatinine 1.29 mg/dl (0.6-1.4) 11/27/20 03:30 Est Cr Clr Drug Dosing Not Reportable 11/27/20 03:30 Est GFR ( Amer) 58.6 ml/min 11/27/20 03:30 Est GFR (Non-Af Amer) 50.6 ml/min 11/27/20 03:30 BUN/Creatinine Ratio 33.6 (10-20) H 11/27/20 03:30 Glucose 153 mg/dl (70-99) H 11/27/20 03:30 Calcium 9.5 mg/dl (8.5-10.1) 11/27/20 03:30 Magnesium 2.5 mg/dl (1.8-2.4) H 11/27/20 03:30 Total Bilirubin 2.2 mg/dl (0.2-1) H 11/27/20 03:30 Direct Bilirubin 0.6 mg/dl (0-0.2) H 11/27/20 03:30 AST 37 U/L (15-37) 11/27/20 03:30 ALT 26 U/L (12-78) 11/27/20 03:30 Alkaline Phosphatase 69 U/L (45-117) 11/27/20 03:30 Troponin I 0.038 ng/ml (0-0.045) 11/27/20 03:30 Total Protein 7.9 gm/dl (6.4-8.2) 11/27/20 03:30 Albumin 4.2 gm/dl (3.4-5.0) 11/27/20 03:30 Lipase 64 U/L (73-393) L 11/27/20 03:[address] abdomen pelvis initial read: No previous studyfor comparison. There is some hepatic cysts. Spleen and pancreas appear normal. There is cholelithiasis. Stomach and proximal segments of small bowel are distended. There is a probable transition in the appearance and caliber of the small bowel associated with a direct right inguinal hernia. Large bowel appears normal. The adrenals kidneys ureters and bladder appear normal. Prostate appears normal. There is no free peritoneal air good There is a direct right inguinal hernia. Impression: Small bowel obstruction associated with a right inguinal hernia Chest x-ray as per my interpretation cardiomegaly EKG as per my interpretation : Rate 75, paced rhythm
[2020-11-27] MEDS ORDERED: SODIUM CHLORIDE 0.45 % 1,000 ML IV STA (05:32)
--- NOTE | 2020-11-27 05:42 | Surgery Consultation ---
Date of Consultation November 27, 2020 Assessment & Plan (1) Small bowel obstruction: Patient has been admitted by the hospitalist service and we recommend proceeding as follows: Maintain the patient n.p.o. status Maintain gastric decompression with NG tube Provide hydration with IV fluid Patient small bowel obstruction is likely caused by a right inguinal hernia. As the patient does take Xarelto it would be preferable to allow 24 to 48 hours prior to any surgical intervention as the patient noted that he did take this medicine last night. We will plan on checking a lactic acid level determine the urgency of any surgical planning. as above. pt with incarcerated RIH which i cannot reduce. minimal tenderness at sight and no pain at rest so I doubt any ischemia. will give some vit K and allow his xarelto to washout one more day. plan open RIH repair with mesh tomorrow. discussed options and risks with him and his ( bleeding/infection/injury to another structure/dvt/pe/mi/cva etc....). questions answered. pt agreeable. History of Present Illness Reason for Consultation: Small bowel obstruction History of Present Illness This is an 85-year-old male who presented [facility] emergency department secondary to proximately 3 to 4 days of nausea vomiting. Patient and his were interviewed at bedside. They said that they felt as though he had a "stomach bug" and felt that this would resolve however his symptoms persisted over the above-noted time. Prompting them to come to the emergency department. Patient says that he really did not have anything in the way of abdominal pain just had persistent nausea vomiting. He says his bowels have not been moving very much over the past several days. He denies any fevers, shakes, chills. He denies any contact with other sick individuals with similar symptoms. He notes that he has never had any surgeries on his abdomen. The emergency department patient did have labs and imaging which I independently reviewed. CBC revealed his white blood cell count, hemoglobin, hematocrit, and platelet count were all within normal range. His INR is noted to be 1.6. Chemistry profile showed sodium, potassium, and creatinine were all within normal range. There is no elevation of his lipase. His transaminases were normal and he had a slight elevation of his bilirubin at 2.2 with a direct bilirubin of 0.6. A Covid test has been ordered and is pending. In addition the patient had a CT scan of the abdomen and pelvis. This showed that he had a small bowel obstruction likely caused by a right inguinal hernia. While in the emergency department the patient did have an NG tube placed which immediately drained approximately 800 cc of brown liquid. The patient did note some symptomatic relief with this and he was in no distress at the time of my exam. Allergies Allergy/AdvReac Type Severity Reaction Status Date / Time No Known Allergies Allergy Verified 11/27/20 06:49 Home Medications Medication Instructions Recorded Confirmed Type amoxicillin 500 mg capsule 2,000 mg PO UD PRN 12/11/17 11/27/20 History carvedilol 12.5 mg tablet 12.5 mg PO BID 12/11/17 11/27/20 History lisinopril 5 mg tablet 5 mg PO DAILY 12/11/17 11/27/20 History peg 400-propylene glycol 0.4 %-0.3 1 drp OPHTHALMIC (EYE) TID PRN 12/11/17 11/27/20 History % eye drops (Systane Ultra) pravastatin 40 mg tablet 40 mg PO HS 12/11/17 11/27/20 History rivaroxaban 20 mg tablet (Xarelto) 20 mg PO PM 12/11/17 11/27/20 History vit C,E,zinc,copper-dgore4v 250 1 cap PO QAM 12/11/17 11/27/20 History mg-lutein 5 mg-zeaxanthin 1 mg capsule (Ocuvite Adult 50 Plus) ascorbic acid (vitamin C) 500 mg 500 mg PO QPM 02/03/18 11/27/20 History tablet (Vitamin C) aspirin 81 mg tablet,delayed 81 mg PO QAM 02/03/18 11/27/20 History release ferrous sulfate 325 mg (65 mg 325 mg PO BID 02/03/18 11/27/20 History iron) tablet,delayed release pantoprazole 40 mg tablet,delayed 20 mg PO DAILY 11/27/20 11/27/20 History release Patient History Medical History Atrial fibrillation HX OF PRIOR TO ICD IMPLANT Basal cell carcinoma of face Hearing deficit Hyperlipidemia Hypertension Myocardial Infarction 2007 Surgical History H/O bilateral cataract extraction History of cardiac cath 2007 @ [facility] History of colonoscopy History of heart artery stent 2008 X1 @ [facility] STENT FOLLOWS W DR. BAJWA IN [place], ON XAREL[place] History of tooth extraction ALL TEETH ON TOP ICD (implantable cardioverter-defibrillator) in place HX A FIB 12/13/2016 @ [facility] DR. BAEZ S/P Mohs surgery for basal cell carcinoma ON FACE Social History Smoking Status: Never smoker Second Hand Exposure: No; Hx Alcohol Use: No Hx Substance Use: No Preferred Language: Hebrew Communication Ability: Effective Morning Babysitter Required: No Beliefs That Will Affect Care: None Current Living Situation: Spouse Feels Safe at Home: Yes Safety Concerns: Feels Safe At This Time Assistive Devices: Denture - Upper, Glasses and Hearing Aid - Bilateral Review of Systems Constitutional: no fever and no chills Eyes: no diplopia Ear, Nose, Mouth, Throat: no ear pain and no sore throat Respiratory: no cough and no dyspnea Cardiovascular: no chest pain Gastrointestinal: + nausea and + vomiting; no abdominal pain, no coffee ground emesis and no diarrhea/loose stools Genitourinary: no dysuria Musculoskeletal: no back pain Integumentary: no rash Neurologic: no localized weakness Physical Exam Constitutional: well developed and well nourished; no acute distress Eyes: no conjunctival abnormality ENMT: Ears: + hearing impairment Neck: trachea midline Respiratory: normal respiratory effort; no respiratory distress and no labored breathing Cardiovascular: Rate/Rhythm: regular rate and regular rhythm Gastrointestinal (Abdomen): Patient's abdomen is soft and nondistended. There is no rebound tenderness or guarding. In the patient's right groin there is a palpable mass that was nonreducible. The area was not erythematous but was slightly painful to palpation. Musculoskeletal: No calf tenderness. No gross orthopedic abnormalities. Skin: no rashes Neurologic: moves all extremities Psychiatric: A+Ox3, euthymic affect Results & Data ([facility]) Vital Signs (Past 12 Hours) Vital Signs Temp Pulse Resp BP Pulse Ox 11/27/20 04:00 78 24 137/78 97 11/27/20 03:31 80 21 144/81 H 95 11/27/20 03:25 36.5 C 77 20 119/76 97 PG Care Time/CCT Total # of Minutes Spent Total Time Spent with Patient: Total time spent is greater than 50% in coordination of care (as documented) at patient's floor/unit and/or counseling patient: Coding Level of Care Code 15091 Inpt Consult Level 5 Diagnoses Small bowel obstruction K56.609
[2020-11-27 05:56] LABS: Hematocrit (blood only) 42.6 % (42-52); Hemoglobin 14.6 g/dL (14.0-18.0)
--- NOTE | 2020-11-27 07:32 | CT Scan Report ---
ABDOMEN AND PELVIS CT WITH IV CONTRAST CT DOSE: 301.40 mGy.cm HISTORY: vomiting, abdominal discomfort TECHNIQUE: Multiaxial CT images of the abdomen and pelvis were performed following the use of intrave nous contrast. A dose lowering technique was utilized adhering to the principles of ALARA. COMPARISON STUDY: KUB 11/27/2020. FINDINGS: The lung bases are clear. No pneumoperitoneum. No pneumatosis. No fractures within the visu alized osseous structures. Pacemaker wires are noted. A few small hypodense lesions within the liver which likely represent cysts. The adrenal glands, kidneys, pancreas, and spleen are unremarkable. The main portal vein is patent. There are few small gallstones. No gallbladder wall thickening. No retro peritoneal lymphadenopathy. There is a mildly ectatic abdominal aorta with moderate calcified plaque. The bladder is unremarkable. There is a right femoral hernia containing a short segment of small bow el. This is the transition point for the high-grade small bowel obstruction. The distal ileal loops a re markedly decompressed. The loops proximal to the right femoral hernia measures up to 3.6 cm in vanesa meter. Colonic diverticulosis. No evidence for acute diverticulitis. IMPRESSION: 1. High-grade small bowel obstruction secondary to a right femoral hernia. Surgical decompression rec ommended. 2. Colonic diverticulosis. 3. Cholelithiasis. 4. This finding was called/faxed to the emergency department following dictation. ACT 112: Negative or not required by law. Electronically signed by: Adan Ochoa M.D. 11/27/2020 7:31 AM
--- NOTE | 2020-11-27 08:14 | XRay Report ---
XR chest 1V portable HISTORY: vomiting COMPARISON: None. FINDINGS: No pneumothorax. No pleural effusions. The cardiac silhouette is mildly enlarged. There is a left-sided pacemaker/defibrillator. No focal lung consolidations to suggest pneumonia. No evidence for pulmonary edema. IMPRESSION: Mild cardiomegaly. ACT 112: Negative or not required by law. Electronically signed by: Adan Ochoa M.D. 11/27/2020 8:12 AM
[2020-11-27] MEDS ORDERED: ACETAMINOPHEN 1,000 MG/100 ML VIAL IV PRN (08:18)
[2020-11-27] MEDS ORDERED: PROMETHAZINE HCL 6.25 MG in SODIUM CHLORIDE 0.9% 50 ML IV PRN (08:18)
--- NOTE | 2020-11-27 08:33 | XRay Report ---
KUB HISTORY: vomiting COMPARISON: None. FINDINGS: Multiple dilated gas-filled loops of small bowel seen within the abdomen consistent with a small bowel obstruction. Pacemaker wires are noted. No renal calculi. No ureteral calculi. No pneumo peritoneum or pneumatosis. IMPRESSION: Small bowel obstruction. ACT 112: Negative or not required by law. Electronically signed by: Adan Ochoa M.D. 11/27/2020 8:31 AM
[2020-11-27] MEDS: PANTOprazole 40 MG in DEXTROSE 5% 100 ML IV SCH ×4 (08:39→23:41)
[2020-11-27] MEDS ORDERED: PHYTONADIONE 1 MG in SODIUM CHLORIDE 0.9% 50 ML IV ONE (09:00)
[2020-11-27 12:08] LABS: Hematocrit (blood only) 43.8 % (42-52)
[2020-11-27] MEDS: METOPROLOL TARTRATE 1 MG/ML VIAL IV SCH ×3 (12:44→23:48)
--- NOTE | 2020-11-27 13:26 | Hospitalist Progress Note ---
Date of Service November 27, 2020 Assessment & Plan (1) UGIB (upper gastrointestinal bleed): Plan: Initially presenting with hematemesis likely secondary to small bowel obstruction from incarcerated hernia below. This is in the setting of NOAC use which has been held, vitamin K given. Currently has normal H&H. GI was consulted, awaiting recommendations. Continue Protonix drip at this time. NG tube in place. Currently hemodynamically stable. (2) Small bowel obstruction: Plan: Patient with evidence of an incarcerated small bowel on the right per CT. NG tube placed with decompression. Holding surgical treatment for 1 day in setting of Xarelto use. Will watch very closely for decompensation. Trend labs this afternoon. Continue IV fluids for IV hydration and maintain n.p.o. (3) Right inguinal hernia: Plan: Plan for repair of inguinal hernia in a.m. with general surgery. (4) Atrial fibrillation: Plan: V-paced rhythm on admission. Holding Xarelto and giving vitamin K mildly elevated INR 1.6 as above. Placed order for phlebotomy to only draw lab peripherally instead of from the line. Continue telemetry monitoring for now. (5) Ischemic cardiomyopathy with implantable cardioverter-defibrillator (ICD): Plan: History of ischemic cardiomyopathy with implantable cardiac defibrillator placed in 2017. Currently appears euvolemic with patient n.p.o. Coreg held, Lopressor 2.5 IV every [address] Continue holding lisinopril, aspirin, pravastatin. (6) DVT prophylaxis: Plan: SCDs Full code Disposition-pending recovery from surgery tomorrow Erendira Sandoval DO [facility] Hospitalist Admission and Anticipated Discharge Date Admission Date: November 27, 2020 Subjective The patient is an 85-year-old man who presented to the ER for evaluation of hematemesis. He reported persistent nausea vomiting and weakness for the past 3 days which has been gradually worsening and associated with fatigue. He is on Xarelto for history of atrial fibrillation. He was evaluated by surgery after a CT scan of the abdomen pelvis revealed a small bowel obstruction likely caused by a right inguinal hernia. While in the emergency department he had an NG tube placed which immediately drained approximately 800 cc of brown liquid. Additionally, INR was noted to be 1.6. Discussed this with head of anticoagulation clinic who was concerned blood may have been drawn from the line as opposed to a peripheral stick. Out of precaution he was given 1 mg vitamin K and repeat labs will be drawn later this evening. Chemistry panel was otherwise within normal limits. He had a very mild leukocytosis and was not appearing to be septic. Lactic acid acid level was 2.1. On exam at bedside the patient is not in any acute distress and denies any pain or nausea. NG tube continues to drain brown liquid and minimal amounts, NG tube to low intermittent suction. Patient denies any abnormal stools Denies any chest pain or shortness of breath or other issues at this time. Review of Systems Review of Systems: All systems were reviewed and negative except as indicated in HPI above. Physical Exam Physical Exam: CONSTITUTIONAL: WNWD, vitals as above, generally well- appearing EYES: normal conjunctivae, no scleral icterus ENT: external ear and nose normal, MMM, NGT in place draining brown liquid. NECK: trachea midline RESPIRATORY: clear to auscultation bilaterally, no crackles, rales or wheezes, normal respiratory effort CARDIOVASCULAR: regular rate and rhythm, S1 and 2 heard without murmurs, gallops or rubs, no JVD, no peripheral edema GASTROINTESTINAL: soft, mild discomfort but no overt abdominal pain or guarding, nondistended MUSCULOSKELETAL: strength 5/5 throughout, head is normocephalic and atraumatic, neck supple, normal palpation of chest wall without tenderness SKIN: warm and dry NEUROLOGIC: CN 2-12 grossly intact, no sensory deficit, normal cognition, normal speech, no tremor PSYCHIATRIC: alert cooperative and answering questions appropriately, following instructions. Results & Data Results & Data ([facility]) Vital Signs (Past 12 Hours) Vital Signs Temp Pulse Pulse Resp BP BP BP 11/27/20 12:44 71 114/74 11/27/20 11:56 36.3 C L 71 16 114/74 11/27/20 08:00 36.8 C 71 18 133/80 11/27/20 07:15 74 16 108/67 11/27/20 06:30 70 20 133/70 11/27/20 06:00 70 20 112/64 11/27/20 05:30 73 20 119/69 11/27/20 05:00 72 20 139/79 11/27/20 04:00 78 24 137/78 11/27/20 03:31 80 21 144/81 H 11/27/20 03:25 36.5 C 77 20 119/76 Pulse Ox 11/27/20 12:44 11/27/20 11:56 96 11/27/20 08:00 97 11/27/20 07:15 95 11/27/20 06:30 98 11/27/20 06:00 97 11/27/20 05:30 96 11/27/20 05:00 96 11/27/20 04:00 97 11/27/20 03:31 95 11/27/20 03:25 97 Laboratory Results Short CBC 11/27/20 11/27/20 11/27/20 Range/Units 03:30 05:45 12:00 WBC 10.60 (4.8-10.8) K/uL Hgb 16.2 14.6 15.0 (14.0-18.0) g/dL Hct 47.2 42.6 43.8 (42-52) % Plt Count 148 (130-400) K/uL BMP 11/27/20 03:30 Sodium 141 Potassium 4.2 Chloride 107 Carbon Dioxide 29 BUN 43 H Creatinine 1.29 Glucose 153 H Calcium 9.5 Cardiac Enzymes 11/27/20 Range/Units 03:30 Troponin I 0.038 (0-0.045) ng/ml Liver Function 11/27/20 Range/Units 03:30 Total Bilirubin 2.2 H (0.2-1) mg/dl Direct Bilirubin 0.6 H (0-0.2) mg/dl AST 37 (15-37) U/L ALT 26 (12-78) U/L Alkaline Phosphatase 69 (45-117) U/L Albumin 4.2 (3.4-5.0) gm/dl Medications Administered Current Inpatient Medications Sodium Chloride (1/2 Nss) 1,000 mls @ 50 mls/hr IV .Q20H STA Stop: 11/28/20 01:31 Last Admin: 11/27/20 05:36 Dose: 50 mls/hr Documented by: Pantoprazole Sodium 40 mg/ (Dextrose) 100 mls @ 20 mls/hr IV Q5H SENG Stop: 12/27/20 06:29 Last Admin: 11/27/20 12:44 Dose: 8 mg/hr, 20 mls/hr Documented by: Acetaminophen (Ofirmev) 1,000 mg in 100 mls @ 400 mls/hr IV Q8H PRN PRN Reason: pain/fever Stop: 11/30/20 08:17 Promethazine HCl 6.25 mg/ (Sodium Chloride) 50.25 mls @ 201 mls/hr IV Q6H PRN PRN Reason: Nausea And Vomiting Stop: 12/27/20 08:17 Last Infusion: 11/27/20 09:53 Dose: Infused Documented by: Sodium Chloride (1/2 Nss) 1,000 mls @ 50 mls/hr IV .Q20H SENG Stop: 12/28/20 01:29 Metoprolol Tartrate (Metoprolol Tartrate 1 Mg/Ml Vial) 2.5 mg IV Q6 SENG Stop: 12/27/20 11:59 Last Admin: 11/27/20 12:44 Dose: 2.5 mg Documented by:
[2020-11-27 17:59] LABS: INR 1.2 (0.9-1.1)
[2020-11-27 18:08] LABS: Hemoglobin 15.5 g/dL (14.0-18.0); Mean Corpuscular Hemoglobin 32.8 pg (25-34); Mean Corpuscular Hgb Conc 34.4 g/dL (32-36); Mean Corpuscular Volume 95.3 fL (80-100); Mean Platelet Volume 12.2 fL (7.4-10.4); Platelet Count 134 K/uL (130-400); RDW Coefficient of Variation 13.7 % (11.5-14.5); RDW Standard Deviation 48.7 fL (36.4-46.3); Red Blood Count 4.72 M/uL (4.7-6.1); White Blood Count 12.05 K/uL (4.8-10.8)
[2020-11-27 18:15] LABS: Calcium 8.8 mg/dl (8.5-10.1); Creatinine Clr Calc Pharmacy 51.9 ml/min; Est GFR (African American) 80.7 ml/min; Est GFR (Non-African American) 69.6 ml/min
--- NOTE | 2020-11-27 19:40 | Communication Note ---
Date of Service: November 27, 2020 Patient was revisited at bedside at approximately 7:30 PM this evening. Since the patient's NG tube is been placed he has not had any further emesis. There have not been any recorded episodes of fever, hypotension, or tachycardia. Patient notes that he does have some slight pain in the right groin where his noted hernia is. He notes that this area is no worse than it was this morning. On exam the patient continues to have a palpable lump in the right groin consistent with a hernia noted on CT scan. Again this area is nonreducible. There is some slight erythema noted which was similar to what was noted at time of admission in the emergency department. I discussed with the nurse caring for the patient and they did not express any immediate concerns at this time. After the patient was admitted I did discuss with the hospitalist as well as Dr. Foley and due to the patient's elevated INR it was elected to give the patient 1 mg of intravenous vitamin K and continue to hold his Xarelto. Repeat INR shows that the patient's INR is now 1.2. We will plan on performing repair of patient's hernia tomorrow.
[2020-11-27 20:05] LABS: Appearance Urine Clear (Clear); Bacteria Urine Automated Negative (Negative); Blood Urine 1+ (Negative); Color Urine Dark Yellow; Epithelial Cell Urine Auto 0-5 /lpf (0-5); Glucose Urine UA Negative (Negative); Ketones Urine Negative (Negative); Leukocyte Esterase Urine Negative (Negative); Nitrite Urine Negative (Negative); Protein Urine 1+ (Negative); RBC Urine Automated 0-4 /hpf (0-4); Specific Gravity Urine > 1.045 (1.000-1.030); Urobilinogen Urine Negative (Negative); pH Urine 5.5 (4.5-7.5)
[2020-11-27 20:14] LABS: Bilirubin Urine 1+ (Negative)
[2020-11-27] MEDS ORDERED: Nursing to Pharmacy Communication SCH (21:30)
[2020-11-28] MEDS ORDERED: SODIUM CHLORIDE 0.45 % 1,000 ML IV SCH (01:30)
[2020-11-28] MEDS: PANTOprazole 40 MG in DEXTROSE 5% 100 ML IV SCH ×4 (04:41→21:54)
--- NOTE | 2020-11-28 06:06 | Electrocardiogram Report ---
Test Reason : Blood Pressure : / mmHG Vent. Rate : 074 BPM Atrial Rate : 394 BPM P-R Int : 000 ms QRS Dur : 146 ms QT Int : 460 ms P-R-T Axes : 000 -05 082 degrees QTc Int : 510 ms Poor data quality, interpretation may be adversely affected Ventricular-paced rhythm Abnormal ECG No previous ECGs available Confirmed by Mak Foley ([id number]) on 11/28/2020 6:06:04 AM Referred By: REFERRED SELF Confirmed By:Mak Foley
[2020-11-28] MEDS: METOPROLOL TARTRATE 1 MG/ML VIAL IV SCH ×4 (06:09→23:58)
--- NOTE | 2020-11-28 07:37 | History & Physical Bridge Note ---
Date of Service November 28, 2020 History & Physical Bridge Note I have examined the patient, reviewed the History & Physical and in the interval since the performance of the History & Physical I have noted the following changes of clinical significance: no changes noted pt seen. feeling better. mild ttp right groin. discussed options/risks of surgery ( bleeding/infection/injury to another structure/dvt/pe/mi/cva etc....). questions answered. will proceed this AM with open right inguinal hernia repair with mesh.
[2020-11-28 07:39] LABS: Hematocrit (blood only) 45.1 % (42-52); Hemoglobin 15.7 g/dL (14.0-18.0); Mean Corpuscular Hemoglobin 32.7 pg (25-34); Mean Corpuscular Hgb Conc 34.8 g/dL (32-36); Mean Platelet Volume 12.4 fL (7.4-10.4); Platelet Count 146 K/uL (130-400); RDW Coefficient of Variation 13.5 % (11.5-14.5); RDW Standard Deviation 46.2 fL (36.4-46.3); White Blood Count 14.32 K/uL (4.8-10.8)
[2020-11-28 07:58] LABS: Basophils # (auto) 0.01 K/uL (0-0.2); Basophils % (auto) 0.1 %; Eosinophils # (auto) 0.01 K/uL (0-0.5); Eosinophils % (auto) 0.1 %; Immature Granulocytes # (auto) 0.04 K/uL (0.00-0.02); Immature Granulocytes % (auto) 0.3 %; Lymphocytes % (auto) 48.2 %; Monocytes # (auto) 0.88 K/uL (0.11-0.59); Monocytes % (auto) 6.1 %; Neutrophils # (auto) 6.48 K/uL (1.4-6.5); Neutrophils % (auto) 45.2 %
[2020-11-28 08:10] LABS: BUN Creatinine Ratio 42.6 (10-20); Calcium 9.1 mg/dl (8.5-10.1); Creatinine Clr Calc Pharmacy 62.7 ml/min; Est GFR (African American) 94.1 ml/min; Est GFR (Non-African American) 81.2 ml/min; Potassium 3.8 mmol/L (3.5-5.1)
[2020-11-28] MEDS ORDERED: ceFAZolin 2000MG 2,000 MG/15 ML SYR IV SCH (08:22)
[2020-11-28 09:02] LABS: Estimated Average Glucose 120 mg/dl; Hemoglobin A1C 5.8 % (4.5-5.6)
[2020-11-28] MEDS ORDERED: PHENYLEPHRINE 100MCG/ML 5ML SYR IV PRN (09:03)
[2020-11-28] MEDS ORDERED: ePHEDrine sulfate 50 MG/ML AMP IV PRN (09:03)
[2020-11-28] MEDS ORDERED: HYDROmorphone INJ 1 MG/ML SYRINGE IV PRN (09:03)
[2020-11-28] MEDS ORDERED: fentaNYL citrate 100 MCG/2 ML VIAL IV PRN (09:03)
[2020-11-28] MEDS ORDERED: ONDANSETRON INJ 2 MG/ML 2 ML VIAL IV PRN (09:03)
[2020-11-28] MEDS ORDERED: ATROPINE SULFATE 0.1 MG/ML 10ML SYR IV PRN (09:03)
[2020-11-28] MEDS ORDERED: LABETALOL HCL IV 5 MG/ML 20ML IV PRN (09:03)
[2020-11-28] MEDS ORDERED: fentaNYL citrate 100 MCG/2 ML VIAL ONE (09:10)
[2020-11-28] MEDS ORDERED: BUPIVACAINE 0.5 % 5 MG/1 ML MPF 30ML VIAL ONE (09:13)
[2020-11-28] MEDS ORDERED: EPINEPHrine INJ 1 MG/ML AMP ONE (09:13)
--- NOTE | 2020-11-28 09:23 | Anesthesiology Consultation ---
Date of Service November 28, 2020 Assessment & Plan (1) Encounter for pre-operative examination: Chart Review Chart Review: Acceptable Risk for Surgery and Patient NOT seen in Pre Admission Testing Consults Requested none History Surgery Operation Date: 11/28/20 11:40 Proposed Procedures p Open Right Inguinal Hernia Repair with Mesh - Moe Rick, Height/Weight Height: 5 ft 7 in Weight: 67 kg Allergies Allergy/AdvReac Type Severity Reaction Status Date / Time No Known Allergies Allergy Verified 11/27/20 06:49 Medications Home Medications Medication Instructions Recorded Confirmed Last Taken amoxicillin 500 mg capsule 2,000 mg PO UD PRN 12/11/17 11/27/20 12/02/17 carvedilol 12.5 mg tablet 12.5 mg PO BID 12/11/17 11/27/20 02/07/18 06:00 lisinopril 5 mg tablet 5 mg PO DAILY 12/11/17 11/27/20 01/31/18 07:00 peg 400-propylene glycol 0.4 %-0.3 1 drp OPHTHALMIC (EYE) TID PRN 12/11/17 11/27/20 02/07/18 % eye drops (Systane Ultra) pravastatin 40 mg tablet 40 mg PO HS 12/11/17 11/27/20 02/06/18 rivaroxaban 20 mg tablet (Xarelto) 20 mg PO PM 12/11/17 11/27/20 02/03/18 vit C,E,zinc,copper-tcgqi9o 250 1 cap PO QAM 12/11/17 11/27/20 02/06/18 08:00 mg-lutein 5 mg-zeaxanthin 1 mg capsule (Ocuvite Adult 50 Plus) ascorbic acid (vitamin C) 500 mg 500 mg PO QPM 02/03/18 11/27/20 02/05/18 tablet (Vitamin C) aspirin 81 mg tablet,delayed 81 mg PO QAM 02/03/18 11/27/20 02/03/18 release ferrous sulfate 325 mg (65 mg 325 mg PO BID 02/03/18 11/27/20 02/06/18 21:00 iron) tablet,delayed release pantoprazole 40 mg tablet,delayed 20 mg PO DAILY 11/27/20 11/27/20 Unknown release Active Medications Generic Name Dose Route Start Last Admin Trade Name Freq PRN Reason Stop Dose Admin Pantoprazole Sodium 40 mg/ 100 mls @ 20 mls/hr 11/27/20 06:30 11/28/20 04:41 Dextrose IV 12/27/20 06:29 8 mg/hr Q5H SENG 20 mls/hr Administration 8 MG/HR Promethazine HCl 6.25 mg/ 50.25 mls @ 201 mls/hr 11/27/20 08:18 11/27/20 09:53 Sodium Chloride IV 12/27/20 08:17 Infused Q6H PRN Infusion Nausea And Vomiting Sodium Chloride 1,000 mls @ 50 mls/hr 11/28/20 01:30 11/28/20 01:59 1/2 Nss IV 12/28/20 01:29 50 mls/hr .Q20H SENG Administration Metoprolol Tartrate 2.5 mg 11/27/20 12:00 11/28/20 06:09 Metoprolol Tartrate 1 Mg/Ml Vial IV 12/27/20 11:59 2.5 mg Q6 SENG Administration NPO Date Last Intake of Fluids: 11/27/20 Time Last Intake of Fluids: 11:35 Last Intake of Fluids Comment: ice chips Date Last Intake of Solids: 11/26/20 Past Medical History Medical History Atrial fibrillation HX OF PRIOR TO ICD IMPLANT Basal cell carcinoma of face Hearing deficit Heart failure 2017 echo shows EF 30-35% Hyperlipidemia Hypertension Myocardial Infarction 2007 Presence of combination internal cardiac defibrillator (ICD) and pacemaker 2017 [employer] as per prior note Past Surgical History Surgical History H/O bilateral cataract extraction History of cardiac cath 2007 @ [facility] History of colonoscopy History of heart artery stent 2007 X1 @ [facility] STENT FOLLOWS W DR. BAJWA IN [place], ON [place] History of tooth extraction ALL TEETH ON TOP ICD (implantable cardioverter-defibrillator) in place HX A FIB 12/13/2016 @ [facility] DR. BAEZ S/P Mohs surgery for basal cell carcinoma ON FACE Social History Smoking Status: Never smoker Hx Alcohol Use: No Hx Substance Use: No substance use type: does not use Physical Exam Vital Signs Last Vital Signs Temp 37.5 C 11/28/20 07:55 Pulse 77 11/28/20 07:55 Resp 18 11/28/20 07:55 BP 128/79 11/28/20 07:55 Pulse Ox 95 11/28/20 08:18 Testing Laboratory Results 11/28/20 07:21 11/28/20 07:21 PT 12.0 Seconds (9.0-12.0) 11/27/20 17:27 INR 1.2 (0.9-1.1) H 11/27/20 17:27 APTT 37.8 Seconds (21.0-31.0) H 11/27/20 03:30 Hemoglobin A1c 5.8 % (4.5-5.6) H 11/27/20 05:46 Urine Color Dark Yellow 11/27/20 Unknown Urine Appearance Clear (Clear) 11/27/20 Unknown Urine pH 5.5 (4.5-7.5) 11/27/20 Unknown Ur Specific [place] > 1.045 (1.000-1.030) H 11/27/20 Unknown Urine Protein 1+ (Negative) H 11/27/20 Unknown Urine Glucose (UA) Negative (Negative) 11/27/20 Unknown Urine Ketones Negative (Negative) 11/27/20 Unknown Urine Nitrite Negative (Negative) 11/27/20 Unknown Ur Leukocyte Esterase Negative (Negative) 11/27/20 Unknown Urine WBC (Auto) 1-5 /hpf (0-5) 11/27/20 Unknown Urine RBC (Auto) 0-4 /hpf (0-4) 11/27/20 Unknown U Hyaline Cast (Auto) 1-5 /lpf (0-5) 11/27/20 Unknown U Epithel Cells (Auto) 0-5 /lpf (0-5) 11/27/20 Unknown Urine Bacteria (Auto) Negative (Negative) 11/27/20 Unknown Blood Type A Positive 11/27/20 05:46 Antibody Screen NEGATIVE 11/27/20 05:46 Electrocardiogram Date: 11/27/20 v-paced, 74
[2020-11-28] MEDS ORDERED: SUCCINYLCHOLINE CHLORIDE 20 MG/ML 10 ML VIAL IV ONE (09:57)
[2020-11-28] MEDS ORDERED: ePHEDrine sulfate 50 MG/ML SYR ONE (09:57)
[2020-11-28] MEDS ORDERED: DEXAMETHASONE SOD INJ 4 MG/ML VIAL ONE (09:57)
[2020-11-28] MEDS ORDERED: LIDOCAINE 2% 2 ML VIAL/AMP(20MG/ML) INFIL ONE (09:57)
[2020-11-28] MEDS ORDERED: PROPOFOL IV EMULSION 10 MG/ML 20 ML VIAL IV ONE (09:57)
[2020-11-28] MEDS ORDERED: LARYING-O-JET KIT (LTA) ONE (09:57)
[2020-11-28] MEDS ORDERED: ONDANSETRON INJ 2 MG/ML 2 ML VIAL ONE (09:57)
[2020-11-28] MEDS ORDERED: ROCURONIUM BROMIDE 10 MG/ML 5 ML VIAL IV ONE (10:53)
[2020-11-28] MEDS ORDERED: NEOSTIGMINE METHYLSULFATE 1 MG/ML 10ML VIAL ONE (10:53)
[2020-11-28] MEDS ORDERED: GLYCOPYRROLATE 0.2 MG/ML VIAL ONE (10:53)
--- NOTE | 2020-11-28 11:41 | Operative Report ---
PG Post Operative Report Pre & Post Diagnosis Operation Date: 11/28/20 11:40 Pre-Op Diagnosis: right inguinal hernia Post-Op Diagnosis: right inguinal hernia; sbo; small bowel infarction I identified the patient and participated in the time-out.: Yes Procedure Operation Date: 11/28/20 11:40 Actual Procedures p Open Right Inguinal Hernia Repair with Mesh, Reduction of Small bowel Obstruction, Diagnostic Laparoscopy, Partial Small Bowel Resection(Left) - Moe Rick DO Surgeon Moe Rick DO [employer] Consultant joanne Diaz Estimated Blood Loss 20 Findings Consistent with Post-Op Diagnosis Specimens portion of small bowel. Description of Procedure After informed consent was obtained the patient was taken to the operating room and placed in supine position. After successful intubation the lower abdomen was shaved and sterilely prepped and draped in usual fashion. I began with a right inguinal incision with a 10 blade scalpel. This was carried down through the soft tissue using cautery. The external oblique aponeurosis was skeletonized and opened with a fresh blade. This was carried distally through the external ring using Metzenbaum scissors as well as for several centimeters proximally. Once in the inguinal canal I was able to elevate the cord and cord structures off the pubic bone. A Vin drain was placed around them. There was no evidence of an inguinal hernia. There was a large femoral hernia with bowel incarceration. The defect was actually quite small and I was unable to safely reduce the bowel. Therefore we extended the femoral hernia defect primarily by dividing the inguinal ligament. Once we did this we were then able to reduce the hernia contents out of the femoral canal. We opened the sac and noted some discoloration of the bowel. We decided to reduce the bowel and repair of the hernia and follow up with a diagnostic laparoscopy. After reducing the hernia I reapproximated the inguinal ligament using 0 Vicryl. We then used a plug and patch technique to repair the large defect. The polypropylene plug was placed into the inguinal floor and secured distally the Melchor's ligament medially along the midline musculature and laterally along the shelving portion of Poupart's ligament. A keyholed polypropylene patch was used as an onlay. It was also secured distally to Melchor's ,laterally along the shelving portion of Poupart's ligament and medially along the midline musculature. The arms of the mesh were wrapped around behind the cord and cord structures and again secured to underlying muscle. The suturing was performed with 0 Ethibond. The mesh all laid nice and flat and tension-free. We thoroughly irrigated the wound. Marcaine with epinephrine was injected around the edges of the mesh for postoperative analgesia. The extra oblique aponeurosis was reapproximated using 2-0 Vicryl in a running fashion. Soft tissue was irrigated and closed using 3-0 Vicryl for deep layers and 4 Monocryl for skin. Some additional Marcaine was injected around the skin and Dermabond glue was used as a dressing. We stayed sterile while the staff took down the drapes and reprepped the entire abdomen with ChloraPrep as well as fresh drapes. I then made an infraumbilical incision with a 15 blade scalpel. This was carried down through soft tissue using cautery. The anterior fascia was opened using cautery and two #0 Vicryl stay sutures were placed. Peritoneum was elevated with hemostats and incised under direct vision using a Metzenbaum scissor. A finger sweep was performed and a 12 mm Aburto trocar was placed. The abdomen was insufflated to 18 mmHg. The laparoscope was inserted. Left mid abdominal 5 mm trocar was placed as well. The patient was placed in a Trendelenburg position. When we inserted the camera and looked around into the right lower quadrant we immediately noted some infarcted appearing bowel. When I evaluated it it appeared to have a strictured area and again there was a 2 inch portion of serosa that was completely black. The remainder of the abdomen looked okay with no other gross abnormalities. I was able to remove the trochars and extend the camera site incision distally. The ischemic portion of small bowel was delivered out a small 2 inch incision. We used a MESSI purple cartridge staplers to transect the small bowel on either side of the ischemic area. LigaSure device was used to take down the mesentery and the portion of small bowel was sent to pathology. We then performed a [id number] small bowel anastomosis again using a MESSI purple cartridge stapler. The common enterotomy was also closed using a MESSI purple stapler. 3-0 silk was used to oversew the staple lines as well as the place a crotch stitch. 2-0 Vicryl was used to close the mesenteric defect. Anastomosis was widely patent and had good blood flow. This was reduced back into the abdomen. The fascia was closed using 0 PDS in a running fashion. Soft tissue was thoroughly irrigated and closed using 3-0 Vicryl. Skin was closed using 4-0 Monocryl. Some additional Marcaine was injected around this incision and Dermabond glue was used as a dressing. The patient was awakened extubated and transferred recovery in stable condition. My physician registered dental assistant rda was present through the entire case. He was instrumental in exposure for my hernia repair as well as assisting on the small bowel resection wound closure and dressing placement. I attest to the content of the Intraoperative Record and any orders documented therein. Any exceptions are noted below.
--- NOTE | 2020-11-28 12:23 | Anesthesiology Progress Note ---
Date of Service November 28, 2020 Anesthesia Post Procedure Vital Signs Vital Signs: Temp Pulse Pulse Pulse Resp BP BP 11/28/20 12:15 36.5 C 88 20 136/88 11/28/20 12:05 36.5 C 77 22 144/86 H 11/28/20 11:55 84 22 145/93 H 11/28/20 11:45 95 H 18 160/95 H 11/28/20 11:36 36.2 C L 101 H 20 148/111 H 11/28/20 08:18 11/28/20 07:55 37.5 C 77 18 128/79 11/28/20 07:00 36.7 C 74 18 131/75 11/28/20 06:09 72 131/79 11/28/20 06:08 72 11/28/20 03:03 36.5 C 78 18 11/28/20 02:15 70 11/27/20 23:00 36.8 C 75 18 11/27/20 19:00 36.8 C 74 18 11/27/20 18:29 85 130/73 11/27/20 15:55 36.5 C 82 16 136/74 11/27/20 12:44 71 114/74 BP Pulse Ox Pulse Ox 11/28/20 12:15 94 11/28/20 12:05 94 11/28/20 11:55 97 11/28/20 11:45 97 11/28/20 11:36 99 11/28/20 08:18 95 11/28/20 07:55 94 11/28/20 07:00 95 11/28/20 06:09 11/28/20 06:08 131/79 11/28/20 03:03 133/79 93 11/28/20 02:15 11/27/20 23:00 145/82 H 97 11/27/20 19:00 134/76 96 11/27/20 18:29 11/27/20 15:55 95 11/27/20 12:44 Transfer of Care Handoff Completed per policy Notes Mental Status: alert / awake / arousable Patient Amnestic to Procedure: Yes Nausea / Vomiting: adequately controlled Pain: adequately controlled Airway Patency, RR, SpO2: stable & adequate BP & HR: stable & adequate Hydration State: stable & adequate Anesthetic Complications: no major complications apparent and Pt Satisfied with anesthetic care Notes: The patient is awake and comfortable.
[2020-11-28] MEDS ORDERED: MoRPHine SULFATE 2 MG/ML CARP IV PRN (12:35)
[2020-11-28] MEDS ORDERED: MoRPHine SULFATE 4 MG/ML 1 ML CARP\\VIAL IV PRN (12:35)
[2020-11-28] MEDS: D5W AND 1/2NSS + 20MEQ KCL 20 MEQ/1,000 ML BAG IV SCH ×2 (13:36→23:59)
--- NOTE | 2020-11-28 16:46 | Hospitalist Progress Note ---
Date of Service November 28, 2020 Assessment & Plan (1) UGIB (upper gastrointestinal bleed): Plan: ruled out. Initially presenting with hematemesis likely secondary to small bowel obstruction from incarcerated hernia below in setting of NOAC use. Protonix-change drip to IVP BID for now. Hold on restarting Xarelto until ok with General surgeon. (2) Small bowel obstruction: Plan: Patient with evidence of an incarcerated small bowel on the right per CT. NG tube placed with decompression-remains in place post-operatively. Cont IVF and other supportive care efforts-dc tube and advance diet per surgery. (3) Right inguinal hernia: Plan: s/p repair as above. (4) Atrial fibrillation: Plan: V-paced rhythm on admission. Holding Xarelto -received vitamin K preop. Cont IV Lopressor while NPO (5) Ischemic cardiomyopathy with implantable cardioverter-defibrillator (ICD): Plan: History of ischemic cardiomyopathy with implantable cardiac defibrillator placed in 2017. Currently appears euvolemic with patient n.p.o. Coreg held, Lopressor 2.5 IV every [address]. Continue holding lisinopril, aspirin, pravastatin with plans to restart once tolerating PO. (6) DVT prophylaxis: Plan: SCDs Full code Disposition-pending recovery from surgery and PT/OT recommendations. Erendira Sandoval DO [facility] Hospitalist Admission and Anticipated Discharge Date Admission Date: November 27, 2020 Subjective The patient is an 85-year-old man who presented to the ER for evaluation of hematemesis 2/2 incarcerated right inguinal hernia. POD#1 s/p open right inguinal hernia repair with mesh, reduction of small bowel obstruction and diagnostic laparoscopy with left partial small bowel resection by Dr. Rick. Doing well, pain controlled, NG tube still in place with min output Review of Systems Review of Systems: At least ten systems were reviewed and negative except as indicated in HPI above. Physical Exam Physical Exam: CONSTITUTIONAL: WNWD, vitals as above, generally well- appearing EYES: normal conjunctivae, no scleral icterus ENT: external ear and nose normal, MMM, NGT in place. NECK: trachea midline RESPIRATORY: clear to auscultation bilaterally, no crackles, rales or wheezes, normal respiratory effort CARDIOVASCULAR: regular rate and rhythm, S1 and 2 heard without murmurs, gallops or rubs, no JVD, no peripheral edema GASTROINTESTINAL: soft, mild discomfort but no overt abdominal pain or guarding, nondistended, large incision along lower abdomen and additional small incision site that are closed and healing well. MUSCULOSKELETAL: strength 5/5 throughout, head is normocephalic and atraumatic, neck supple, normal palpation of chest wall without tenderness SKIN: warm and dry NEUROLOGIC: CN 2-12 grossly intact, no sensory deficit, normal cognition, normal speech, no tremor PSYCHIATRIC: alert cooperative and answering questions appropriately, following instructions. Results & Data Results & Data ([facility]) Vital Signs (Past 12 Hours) Vital Signs Temp Pulse Pulse Pulse Resp BP BP 11/28/20 15:36 36.7 C 85 18 132/78 11/28/20 13:19 36.9 C 85 18 137/81 11/28/20 12:56 77 11/28/20 12:45 86 133/77 11/28/20 12:43 36.9 C 86 19 158/78 H 11/28/20 12:15 36.5 C 88 20 136/88 11/28/20 12:05 36.5 C 77 22 144/86 H 11/28/20 11:55 84 22 145/93 H 11/28/20 11:45 95 H 18 160/95 H 11/28/20 11:36 36.2 C L 101 H 20 148/111 H 11/28/20 11:00 36.5 C 80 17 133/77 11/28/20 08:18 11/28/20 08:00 73 11/28/20 07:55 37.5 C 77 18 128/79 11/28/20 07:00 36.7 C 74 18 131/75 11/28/20 06:09 72 131/79 11/28/20 06:08 72 BP Pulse Ox Pulse Ox 11/28/20 15:36 94 11/28/20 13:19 94 11/28/20 12:56 11/28/20 12:45 11/28/20 12:43 93 11/28/20 12:15 94 11/28/20 12:05 94 11/28/20 11:55 97 11/28/20 11:45 97 11/28/20 11:36 99 11/28/20 11:00 93 11/28/20 08:18 95 11/28/20 08:00 11/28/20 07:55 94 11/28/20 07:00 95 11/28/20 06:09 11/28/20 06:08 131/79 Laboratory Results Short CBC 11/27/20 11/28/20 Range/Units 17:27 07:21 WBC 12.05 H 14.32 H (4.8-10.8) K/uL Hgb 15.5 15.7 (14.0-18.0) g/dL Hct 45.0 45.1 (42-52) % Plt Count 134 146 (130-400) K/uL BMP 11/27/20 11/28/20 17:27 07:21 Sodium 141 138 Potassium 4.0 3.8 Chloride 107 105 Carbon Dioxide 29 27 BUN 37 H 35 H Creatinine 0.99 D 0.82 Glucose 127 H 112 H Calcium 8.8 9.1 Urine 11/27/20 Range/Units Unknown Urine Color Dark Yellow Urine Appearance Clear (Clear) Urine pH 5.5 (4.5-7.5) Ur Specific [place] > 1.045 H (1.000-1.030) Urine Protein 1+ H (Negative) Urine Glucose (UA) Negative (Negative) Medications Administered Current Inpatient Medications Aspirin (Aspirin 81 Mg Ectab) 81 mg PO QAM [facility] Stop: 12/29/20 08:59 Pantoprazole Sodium 40 mg/ (Dextrose) 100 mls @ 20 mls/hr IV Q5H [facility] Stop: 12/27/20 06:29 Last Admin: 11/28/20 16:41 Dose: 8 mg/hr, 20 mls/hr Documented by: Acetaminophen (Ofirmev) 1,000 mg in 100 mls @ 400 mls/hr IV Q8H PRN PRN Reason: pain/fever Stop: 11/30/20 08:17 Promethazine HCl 6.25 mg/ (Sodium Chloride) 50.25 mls @ 201 mls/hr IV Q6H PRN PRN Reason: Nausea And Vomiting Stop: 12/27/20 08:17 Last Infusion: 11/27/20 09:53 Dose: Infused Documented by: Potassium Chloride/Dextrose/Sod Cl (D5w And 1/2nss + 20meq Kcl) 20 meq in 1,000 mls @ 80 mls/hr IV .[id number] SENG Stop: 12/28/20 12:34 Last Admin: 11/28/20 13:36 Dose: 80 mls/hr Documented by: Metoprolol Tartrate (Metoprolol Tartrate 1 Mg/Ml Vial) 2.5 mg IV Q6 [facility] Stop: 12/27/20 11:59 Last Admin: 11/28/20 12:45 Dose: 2.5 mg Documented by: Morphine Sulfate (Morphine Sulfate 2 Mg/Ml Carp) 2 mg IV Q1H PRN PRN Reason: Pain Stop: 12/12/20 12:34 Morphine Sulfate (Morphine Sulfate 4 Mg/Ml 1 Ml Carp\Vial) 4 mg IV Q1H PRN PRN Reason: Pain Stop: 12/12/20 12:34
[2020-11-29] MEDS: PANTOprazole 40 MG in DEXTROSE 5% 100 ML IV SCH ×2 (02:31→05:25)
[2020-11-29] MEDS: METOPROLOL TARTRATE 1 MG/ML VIAL IV SCH ×2 (05:26→11:56)
--- NOTE | 2020-11-29 07:26 | Surgery Progress Note ---
Date of Service November 29, 2020 Assessment & Plan (1) Right inguinal hernia: Plan: POD 1 repair of femoral hernia, partial small bowel resection NG output minimal, can probably remove later ambulate labs pending as above. doing well. will d/c ngt and try clears d/c nunez pain controlled. Admission and Anticipated Discharge Date Admission Date: November 27, 2020 Subjective c/o NGT, minimal pain Physical Exam Gastrointestinal (Abdomen): Inspection/Auscultation: + abdominal surgical incision (clean, dry); abdomen not distended Percussion/Palpation: abdomen soft Results & Data ([facility]) Vital Signs (Past 12 Hours) Vital Signs Temp Pulse Pulse Resp BP Pulse Ox 11/29/20 05:22 36.5 C 75 18 149/62 H 96 11/29/20 03:39 37.0 C 80 18 124/62 96 11/28/20 22:48 37.1 C 78 18 129/79 95 11/28/20 19:30 37.3 C 80 18 127/74 95 PG Care Time/CCT Total # of Minutes Spent Total Time Spent with Patient: Total time spent is greater than 50% in coordination of care (as documented) at patient's floor/unit and/or counseling patient: Coding Level of Care Code None Diagnoses Right inguinal hernia K40.90
[2020-11-29 08:03] LABS: Hematocrit (blood only) 41.5 % (42-52); Hemoglobin 14.3 g/dL (14.0-18.0); Mean Corpuscular Hemoglobin 32.1 pg (25-34); Mean Corpuscular Hgb Conc 34.5 g/dL (32-36); Mean Platelet Volume 12.1 fL (7.4-10.4); Platelet Count 146 K/uL (130-400); RDW Coefficient of Variation 13.3 % (11.5-14.5); RDW Standard Deviation 45.1 fL (36.4-46.3); Red Blood Count 4.46 M/uL (4.7-6.1); White Blood Count 13.62 K/uL (4.8-10.8)
[2020-11-29 08:40] LABS: BUN Creatinine Ratio 28.8 (10-20); Creatinine Clr Calc Pharmacy 71.4 ml/min; Est GFR (African American) 99.3 ml/min; Est GFR (Non-African American) 85.7 ml/min; Potassium 3.9 mmol/L (3.5-5.1)
[2020-11-29] MEDS: ASPIRIN 81 MG ECTAB PO SCH (08:42)
[2020-11-29 08:47] LABS: Basophils # (auto) 0.01 K/uL (0-0.2); Basophils % (auto) 0.1 %; Eosinophils # (auto) 0.01 K/uL (0-0.5); Eosinophils % (auto) 0.1 %; Immature Granulocytes # (auto) 0.07 K/uL (0.00-0.02); Immature Granulocytes % (auto) 0.5 %; Lymphocytes # (auto) 8.42 K/uL (1.2-3.4); Lymphocytes % (auto) 61.8 %; Monocytes # (auto) 0.97 K/uL (0.11-0.59); Monocytes % (auto) 7.1 %; Neutrophils # (auto) 4.14 K/uL (1.4-6.5); Neutrophils % (auto) 30.4 %
[2020-11-29] MEDS: D5W AND 1/2NSS + 20MEQ KCL 20 MEQ/1,000 ML BAG IV SCH (12:25)
--- NOTE | 2020-11-29 15:47 | Hospitalist Progress Note ---
Date of Service November 29, 2020 Assessment & Plan (1) Small bowel obstruction: Plan: Patient with evidence of an incarcerated small bowel on the right per CT. NG tube placed with decompression-removed and tolerating clears. Advance diet per surg recommendations. (2) Right inguinal hernia: Plan: s/p repair as above. (3) Post-operative state: (4) UGIB (upper gastrointestinal bleed): Plan: ruled out. Initially presenting with hematemesis likely secondary to small bowel obstruction from incarcerated hernia below in setting of NOAC use. PPI changed to oral daily. Hold on restarting Xarelto until ok with General surgeon. (5) Atrial fibrillation: Plan: V-paced rhythm on admission. Holding Xarelto -received vitamin K preop. Cont IV Lopressor while NPO (6) Ischemic cardiomyopathy with implantable cardioverter-defibrillator (ICD): Plan: History of ischemic cardiomyopathy with implantable cardiac defibrillator placed in 2017. Currently appears euvolemic . Restart oral home medications including lisinopril, aspirin, pravastatin and coreg. (7) DVT prophylaxis: Plan: SCDs Full code Disposition-pending recovery from surgery and PT/OT recommendations. Erendira Sandoval DO [facility] Hospitalist Admission and Anticipated Discharge Date Admission Date: November 27, 2020 Subjective The patient is an 85-year-old man who presented to the ER for evaluation of hematemesis 2/2 incarcerated right inguinal hernia. POD#2 s/p open right inguinal hernia repair with mesh, reduction of small bowel obstruction and diagnostic laparoscopy with left partial small bowel resection by Dr. Rick. Doing well, pain controlled, NGt removed overnight denies pain or nausea, tolerating clears no flatus or BM yet Gruber removed Review of Systems Review of Systems: At least ten systems were reviewed and negative except as indicated in HPI above. Physical Exam Physical Exam: CONSTITUTIONAL: WNWD, vitals as above, generally well- appearing EYES: normal conjunctivae, no scleral icterus ENT: external ear and nose normal, MMM, voice is notably hoarse (also noted yesterday) NECK: trachea midline RESPIRATORY: clear to auscultation bilaterally, no crackles, rales or wheezes, normal respiratory effort CARDIOVASCULAR: regular rate and rhythm, S1 and 2 heard without murmurs, gallops or rubs, no JVD, no peripheral edema GASTROINTESTINAL: soft, no abdominal pain or guarding, nondistended, large incision along lower abdomen and additional small incision site that are closed and healing well. MUSCULOSKELETAL: strength 5/5 throughout, head is normocephalic and atraumatic, neck supple, normal palpation of chest wall without tenderness SKIN: warm and dry NEUROLOGIC: CN 2-12 grossly intact, no sensory deficit, normal cognition, normal speech, no tremor PSYCHIATRIC: alert cooperative and answering questions appropriately, following instructions. Results & Data Results & Data ([facility]) Vital Signs (Past 12 Hours) Vital Signs Temp Pulse Pulse Resp BP BP Pulse Ox 11/29/20 15:36 36.6 C 70 16 153/85 H 96 11/29/20 15:24 77 11/29/20 11:56 80 118/74 11/29/20 11:10 36.7 C 80 16 118/74 94 11/29/20 09:17 75 11/29/20 08:00 11/29/20 07:36 37 C 76 18 129/83 96 11/29/20 05:22 36.5 C 75 18 149/62 H 96 Pulse Ox 11/29/20 15:36 11/29/20 15:24 11/29/20 11:56 11/29/20 11:10 11/29/20 09:17 11/29/20 08:00 96 11/29/20 07:36 11/29/20 05:22 Laboratory Results Short CBC 11/29/20 Range/Units 07:32 WBC 13.62 H (4.8-10.8) K/uL Hgb 14.3 (14.0-18.0) g/dL Hct 41.5 L (42-52) % Plt Count 146 (130-400) K/uL BMP 11/29/20 07:32 Sodium 137 Potassium 3.9 Chloride 106 Carbon Dioxide 27 BUN 21 H Creatinine 0.72 Glucose 123 H Calcium 8.0 L Medications Administered Current Inpatient Medications Aspirin (Aspirin 81 Mg Ectab) 81 mg PO QAM SENG Stop: 12/29/20 08:59 Last Admin: 11/29/20 08:42 Dose: 81 mg Documented by: Carvedilol (Carvedilol 12.5 Mg Tab) 12.5 mg PO BID SENG Stop: 12/29/20 20:59 Acetaminophen (Ofirmev) 1,000 mg in 100 mls @ 400 mls/hr IV Q8H PRN PRN Reason: pain/fever Stop: 11/30/20 08:17 Promethazine HCl 6.25 mg/ (Sodium Chloride) 50.25 mls @ 201 mls/hr IV Q6H PRN PRN Reason: Nausea And Vomiting Stop: 12/27/20 08:17 Last Infusion: 11/27/20 09:53 Dose: Infused Documented by: Potassium Chloride/Dextrose/Sod Cl (D5w And 1/2nss + 20meq Kcl) 20 meq in 1,000 mls @ 80 mls/hr IV .[id number] [facility] Stop: 12/28/20 12:34 Last Admin: 11/29/20 12:25 Dose: 80 mls/hr Documented by: Morphine Sulfate (Morphine Sulfate 2 Mg/Ml Carp) 2 mg IV Q1H PRN PRN Reason: Pain Stop: 12/12/20 12:34 Morphine Sulfate (Morphine Sulfate 4 Mg/Ml 1 Ml Carp\Vial) 4 mg IV Q1H PRN PRN Reason: Pain Stop: 12/12/20 12:34 Pantoprazole Sodium (Pantoprazole 40 Mg Tab) 40 mg PO QAM [facility] Stop: 12/30/20 08:59
[2020-11-29] MEDS: carvediloL 12.5 MG TAB PO SCH (20:18)
[2020-11-29] MEDS ORDERED: PRAVASTATIN SOD 40 MG TAB PO SCH (21:00)
[2020-11-29] MEDS ORDERED: ASCORBIC ACID 500 MG TAB PO SCH (21:00)
[2020-11-29] MEDS ORDERED: PANTOprazole 40 MG in SYRINGE 0 ML IV SCH (21:00)
[2020-11-30 06:40] LABS: Mean Corpuscular Hgb Conc 34.7 g/dL (32-36); Mean Platelet Volume 11.9 fL (7.4-10.4); Platelet Count 144 K/uL (130-400)
[2020-11-30 06:50] LABS: BUN Creatinine Ratio 29.1 (10-20); Calcium 8.2 mg/dl (8.5-10.1); Creatinine Clr Calc Pharmacy 76.7 ml/min; Est GFR (African American) 102.3 ml/min; Est GFR (Non-African American) 88.2 ml/min; Potassium 3.7 mmol/L (3.5-5.1)
[2020-11-30 07:19] LABS: Eosinophils # (auto) 0.03 K/uL (0-0.5); Eosinophils % (auto) 0.2 %; Hematocrit (blood only) 38.6 % (42-52); Hemoglobin 13.4 g/dL (14.0-18.0); Immature Granulocytes # (auto) 0.06 K/uL (0.00-0.02); Immature Granulocytes % (auto) 0.5 %; Lymphocytes # (auto) 6.72 K/uL (1.2-3.4); Lymphocytes % (auto) 54.9 %; Mean Corpuscular Hemoglobin 32.4 pg (25-34); Mean Corpuscular Volume 93.5 fL (80-100); Monocytes # (auto) 0.99 K/uL (0.11-0.59); Monocytes % (auto) 8.1 %; Neutrophils # (auto) 4.44 K/uL (1.4-6.5); Neutrophils % (auto) 36.3 %; RBC Morphology Unremarkable; RDW Coefficient of Variation 13.2 % (11.5-14.5); RDW Standard Deviation 45.3 fL (36.4-46.3); Red Blood Count 4.13 M/uL (4.7-6.1); White Blood Count 12.24 K/uL (4.8-10.8)
[2020-11-30] MEDS: carvediloL 12.5 MG TAB PO SCH (08:58)
[2020-11-30] MEDS ORDERED: PANTOprazole 40 MG TAB PO SCH (09:00)
[2020-11-30] MEDS ORDERED: lisinopril 5 MG TAB PO SCH (09:00)
[2020-11-30] MEDS ORDERED: CEROVITE ADV FORMULA TAB PO SCH (09:00)
--- NOTE | 2020-11-30 09:01 | Surgery Progress Note ---
Date of Service November 30, 2020 Assessment & Plan (1) Post-operative state: Plan: pod 2 doing well. will advance diet. restart anticoaguants. d/c planning....ok from my standpoint for d/c later today/tomorrow. Admission and Anticipated Discharge Date Admission Date: November 27, 2020 Subjective pt seen. doing well. no pain. no nausea. wants to go home Physical Exam Physical Exam: alert. nad abd: soft. nt. incisions look good. Results & Data ([facility]) Vital Signs (Past 12 Hours) Vital Signs Temp Pulse Resp BP BP Pulse Ox 11/30/20 08:31 36.6 C 73 16 104/60 95 11/29/20 22:50 36.7 C 76 18 121/75 97 PG Care Time/CCT Total # of Minutes Spent Total Time Spent with Patient: Total time spent is greater than 50% in coordination of care (as documented) at patient's floor/unit and/or counseling patient: Coding Level of Care Code None Diagnoses Post-operative state Z98.890
[2020-11-30] MEDS: ASPIRIN 81 MG ECTAB PO SCH (09:05)
--- NOTE | 2020-11-30 17:35 | Discharge Summary ---
Date of Service November 30, 2020 Admission HPI Per Admitting Provider History obtained from patient, family, and records. Limited history from patient secondary to lethargy post Ativan administration at the ER. Medical history significant for chronic systolic heart failure secondary to ischemic cardiomyopathy (EF 40 to 45%, TTE 2019) status post ICD, CAD status post stent/PVD, SSS sp post PPM on Xarelto, hypertension, hyperlipidemia, chronic anemia (baseline hemoglobin of 13), GERD, skin cancer as per records. Last confinement 2016 under Cardiology service for upgrade of dual-chamber pacemaker to biventricular ICD. Few days history of epigastric abdominal pain followed by nausea, emesis. No BM since last week as per . No chest pain, no S OB, no fever, no chills. Patient seen at PCPs office 2 days ago. Antiemetic as needed prescribed. Worsening abdominal pain and distention at home as per . Subsequent hematemesis noted a few hours ago as per . At the ER, IV PPI bolus administered. NGT inserted at the ER. Patient currently more comfortable as per . Medical History as above Surgical History : PPM, cataract surgery Family History : Prostate cancer, heart disease Personal/Social history : Non-smoker, no EtOH intake, retired [employer] employee Admission Exam Per Admitting Provider Physical Exam: GENERAL: Lethargic, comfortable, no respiratory distress SKIN: Pallor, warm HEENT: Pale palpebral conjunctivae, no ptosis, dry buccal mucosa, NGT in place NECK : Supple, no tenderness CHEST : CTA, no tenderness HEART : RRR, no obvious murmurs ABDOMEN: Some distention, nontender EXTREMITIES : No LE swelling/tenderness, no other conspicuous deformities noted NEUROLOGIC : Lethargic, no facial asymmetry, no other gross focality Principal Diagnosis SBO Right inguinal hernia s/p repair UGIB 2/2 above-resolved Discharge Exam CONSTITUTIONAL: WNWD, vitals as above, generally well-appearing EYES: normal conjunctivae, no scleral icterus ENT: external ear and nose normal, MMM, voice is notably hoarse (also noted yesterday) NECK: trachea midline RESPIRATORY: clear to auscultation bilaterally, no crackles, rales or wheezes, normal respiratory effort CARDIOVASCULAR: regular rate and rhythm, S1 and 2 heard without murmurs, gallops or rubs, no JVD, no peripheral edema GASTROINTESTINAL: soft, no abdominal pain or guarding, nondistended, large incision along lower abdomen and additional small incision site that are closed and healing well. MUSCULOSKELETAL: strength 5/5 throughout, head is normocephalic and atraumatic, neck supple, normal palpation of chest wall without tenderness SKIN: warm and dry NEUROLOGIC: CN 2-12 grossly intact, no sensory deficit, normal cognition, normal speech, no tremor PSYCHIATRIC: alert cooperative and answering questions appropriately, following instructions. Discharge Data Allergies Allergy/AdvReac Type Severity Reaction Status Date / Time No Known Allergies Allergy Verified 11/27/20 06:49 Consultations 11/27/20 04:53 Consult General Surgery Routine ED Decision to Admit Stat Procedures Performed Operation Date: 11/28/20 11:40 Actual Procedures p Open Right Inguinal Hernia Repair with Mesh, Reduction of Small bowel Obstruction, Diagnostic Laparoscopy, (Left) - Moe Rick DO s Partial Small Bowel Resection(Left) - Moe Rick DO Ordered Studies Laboratory Results WBC 12.24 K/uL (4.8-10.8) H 11/30/20 05:51 RBC 4.13 M/uL (4.7-6.1) L 11/30/20 05:51 Hgb 13.4 g/dL (14.0-18.0) L 11/30/20 05:51 Hct 38.6 % (42-52) L 11/30/20 05:51 MCV 93.5 fL (80-100) 11/30/20 05:51 MCH 32.4 pg (25-34) 11/30/20 05:51 MCHC 34.7 g/dL (32-36) 11/30/20 05:51 RDW Std Deviation 45.3 fL (36.4-46.3) 11/30/20 05:51 RDW Coeff of Taylor 13.2 % (11.5-14.5) 11/30/20 05:51 Plt Count 144 K/uL (130-400) 11/30/20 05:51 MPV 11.9 fL (7.4-10.4) H 11/30/20 05:51 Immature Gran % (Auto) 0.5 % 11/30/20 05:51 Neut % (Auto) 36.3 % 11/30/20 05:51 Lymph % (Auto) 54.9 % 11/30/20 05:51 [place] % (Auto) 8.1 % 11/30/20 05:51 Eos % (Auto) 0.2 % 11/30/20 05:51 Baso % (Auto) 0.0 % 11/30/20 05:51 Neut # (Auto) 4.44 K/uL (1.4-6.5) 11/30/20 05:51 Lymph # (Auto) 6.72 K/uL (1.2-3.4) H 11/30/20 05:51 [place] # (Auto) 0.99 K/uL (0.11-0.59) H 11/30/20 05:51 Eos # (Auto) 0.03 K/uL (0-0.5) 11/30/20 05:51 Baso # (Auto) 0.00 K/uL (0-0.2) 11/30/20 05:51 Immature Gran # (Auto) 0.06 K/uL (0.00-0.02) H 11/30/20 05:51 Neutrophils % (Manual) 32.2 % 11/27/20 03:30 Lymphocytes % (Manual) 30.4 % 11/27/20 03:30 Reactive Lymphs % (Man) 28.7 % 11/27/20 03:30 Monocytes % (Manual) 8.7 % 11/27/20 03:30 Neutrophils # (Manual) 3.41 K/uL (1.4-6.5) 11/27/20 03:30 Total Absolute Neuts 3.41 K/uL (1.4-6.5) 11/27/20 03:30 Lymphocytes # (Manual) 3.22 K/uL (1.2-3.4) 11/27/20 03:30 Reactive Lymphs # 3.04 K/uL 11/27/20 03:30 Total Abs Lymphocytes 6.26 K/uL (1.2-3.4) H 11/27/20 03:30 Monocytes # (Manual) 0.92 K/uL (0.11-0.59) H 11/27/20 03:30 Blood Smear Review 11/27/20 03:30 RBC Morphology Unremarkable 11/30/20 05:51 Ovalocytes 1+ 11/27/20 03:30 PT 12.0 Seconds (9.0-12.0) 11/27/20 17:27 INR 1.2 (0.9-1.1) H 11/27/20 17:27 APTT 37.8 Seconds (21.0-31.0) H 11/27/20 03:30 PTT Ratio 1.4 11/27/20 03:30 Sodium 137 mmol/L (136-145) 11/30/20 05:51 Potassium 3.7 mmol/L (3.5-5.1) 11/30/20 05:51 Chloride 106 mmol/L (98-107) 11/30/20 05:51 Carbon Dioxide 27 mmol/L (21-32) 11/30/20 05:51 Anion Gap 4.0 (3-11) 11/30/20 05:51 BUN 20 mg/dl (7-18) H 11/30/20 05:51 Creatinine 0.67 mg/dl (0.6-1.4) 11/30/20 05:51 Est Cr Clr Drug Dosing 76.7 ml/min 11/30/20 05:51 Est GFR ( Amer) 102.3 ml/min 11/30/20 05:51 Est GFR (Non-Af Amer) 88.2 ml/min 11/30/20 05:51 BUN/Creatinine Ratio 29.1 (10-20) H 11/30/20 05:51 Glucose 105 mg/dl (70-99) H 11/30/20 05:51 Estimat Average Glucose 120 mg/dl 11/27/20 05:46 Hemoglobin A1c 5.8 % (4.5-5.6) H 11/27/20 05:46 Lactate 1.8 mmol/L (0.4-2.0) 11/27/20 12:00 Calcium 8.2 mg/dl (8.5-10.1) L 11/30/20 05:51 Magnesium 2.5 mg/dl (1.8-2.4) H 11/27/20 03:30 Total Bilirubin 2.2 mg/dl (0.2-1) H 11/27/20 03:30 Direct Bilirubin 0.6 mg/dl (0-0.2) H 11/27/20 03:30 AST 37 U/L (15-37) 11/27/20 03:30 ALT 26 U/L (12-78) 11/27/20 03:30 Alkaline Phosphatase 69 U/L (45-117) 11/27/20 03:30 Troponin I 0.038 ng/ml (0-0.045) 11/27/20 03:30 Total Protein 7.9 gm/dl (6.4-8.2) 11/27/20 03:30 Albumin 4.2 gm/dl (3.4-5.0) 11/27/20 03:30 Lipase 64 U/L (73-393) L 11/27/20 03:30 Urine Color Dark Yellow 11/27/20 Unknown Urine Appearance Clear (Clear) 11/27/20 Unknown Urine pH 5.5 (4.5-7.5) 11/27/20 Unknown Ur Specific [place] > 1.045 (1.000-1.030) H 11/27/20 Unknown Urine Protein 1+ (Negative) H 11/27/20 Unknown Urine Glucose (UA) Negative (Negative) 11/27/20 Unknown Urine Ketones Negative (Negative) 11/27/20 Unknown Urine Blood 1+ (Negative) H 11/27/20 Unknown Urine Nitrite Negative (Negative) 11/27/20 Unknown Urine Bilirubin 1+ (Negative) H 11/27/20 Unknown Urine Urobilinogen Negative (Negative) 11/27/20 Unknown Ur Leukocyte Esterase Negative (Negative) 11/27/20 Unknown Urine WBC (Auto) 1-5 /hpf (0-5) 11/27/20 Unknown Urine RBC (Auto) 0-4 /hpf (0-4) 11/27/20 Unknown U Hyaline Cast (Auto) 1-5 /lpf (0-5) 11/27/20 Unknown U Epithel Cells (Auto) 0-5 /lpf (0-5) 11/27/20 Unknown Urine Bacteria (Auto) Negative (Negative) 11/27/20 Unknown COVID-19 Eval Order Covid19 at [facility] 11/27/20 05:16 SARS-CoV-2 (PCR) NEGATIVE (Negative) 11/27/20 05:16 Flow Cytometry Comment See Comment 11/27/20 03:30 Blood Type A Positive 11/27/20 05:46 Antibody Screen NEGATIVE 11/27/20 05:46 Impressions KUB X-Ray 11/27/20 03:34 KUB HISTORY: vomiting COMPARISON: None. FINDINGS: Multiple dilated gas-filled loops of small bowel seen within the abdomen consistent with a small bowel obstruction. Pacemaker wires are noted. No renal calculi. No ureteral calculi. No pneumoperitoneum or pneumatosis. IMPRESSION: Small bowel obstruction. ACT 112: Negative or not required by law. Electronically signed by: Adan Ochoa M.D. 11/27/2020 8:31 AM Chest X-Ray 11/27/20 03:35 XR chest 1V portable HISTORY: vomiting COMPARISON: None. FINDINGS: No pneumothorax. No pleural effusions. The cardiac silhouette is mild ly enlarged. There is a left-sided pacemaker/defibrillator. No focal lung consolidations to suggest pneumonia. No evidence for pulmonary edema. IMPRESSION: Mild cardiomegaly. ACT 112: Negative or not required by law. Electronically signed by: Adan Ochoa M.D. 11/27/2020 8:12 AM Abdomen/Pelvis CT 11/27/20 04:[address] WITH IV CONTRAST CT DOSE: 301.40 mGy.cm HISTORY: vomiting, abdominal discomfort TECHNIQUE: Multiaxial CT images of the abdomen and pelvis were performed following the use of intravenous contrast. A dose lowering technique was utilized adhering to the principles of ALARA. COMPARISON STUDY: KUB 11/27/2020. FINDINGS: The lung bases are clear. No pneumoperitoneum. No pneumatosis. No fractures within the visualized osseous structures. Pacemaker wires are noted. A few small hypodense lesions within the liver which likely represent cysts. The adrenal glands, kidneys, pancreas, and spleen are unremarkable. The main portal vein is patent. There are few small gallstones. No gallbladder wall thickening. No retroperitoneal lymphadenopathy. There is a mildly ectatic abdominal aorta with moderate calcified plaque. The bladder is unremarkable. There is a right femoral hernia containing a short segment of small bowel. This is the transition point for the high-grade small bowel obstruction. The distal ileal loops are markedly decompressed. The loops proximal to the right femoral hernia measures up to 3.6 cm in diameter. Colonic diverticulosis. No evidence for acute diverticulitis. IMPRESSION: 1. High-grade small bowel obstruction secondary to a right femoral hernia. Surgical decompression recommended. 2. Colonic diverticulosis. 3. Cholelithiasis. 4. This finding was called/faxed to the emergency department following dictation. ACT 112: Negative or not required by law. Electronically signed by: Adan Ochoa M.D. 11/27/2020 7:31 AM Hospital Course (1) Small bowel obstruction: Patient with evidence of an incarcerated small bowel on the right per CT. NG tube placed with decompression. He was noted to be on Xarelto with a slightly elevated INR 1.6. As he was improved, pain was controllable and relatively stable, he was given a small dose of vitamin K and Xarelto was held for 24 hours prior to surgery. On 11/28, he underwent an open Right Inguinal Hernia Repair with Mesh, Reduction of Small bowel Obstruction, Diagnostic Laparoscopy, Partial left Small Bowel Resection by Dr. Moe Rick. He recovered well with NG tube in place for an additional 24 hours. No postoperative complications were noted. He had good wound healing and appropriate pain control. His NGT was removed prior to discharge and he was tolerating solid foods without nausea or pain prior to discharge. Xarelto was also restarted prior to discharge. At time of leaving the hospital, he was mentating clearly, hemodynamically stable and afebrile, and ambulating at his baseline. He was discharged in stable condition with close primary care and general surgery follow-up. Of note, and upper GI bleed was initially of concern, however, ruled out. He initially presenting with hematemesis likely secondary to small bowel obstruction from incarcerated hernia below in setting of NOAC use which resolved with treatment. PPI changed to oral daily and he was continued on his home PPI at discharge. (2) Right inguinal hernia: (3) Post-operative state: (4) UGIB (upper gastrointestinal bleed): (5) Atrial fibrillation: (6) Ischemic cardiomyopathy with implantable cardioverter-defibrillator (ICD): Total Time Total Time Spent Total Time Spent (In Minutes): 60 Discharge Plan Discharge Items Patient Disposition: Home - Self-Care Reason For Visit: SBO,UGIB Discharge Diagnosis: SBO Right inguinal hernia s/p repair UGIB 2/2 above-resolved Condition on Discharge: Good Activity: As commented below Lifting: No more than 10 pounds Bathing: No limitations Exercise/Sports: Gradually increase as tolerated Driving/Machine Use: No limitations Weightbearing: Full weightbearing Non-emergency contact: Primary Care Provider and Surgeon Call non-emergency contact if: you have any medication questions, your symptoms worsen, your pain is not controlled, your pain is worsening, your pain is unusual for you, your pain is concerning for you, you have a fever, your wound has increased redness, your wound has increased drainage and your wound pain has increased Follow-up/Referrals: Moe Rick DO [Surgeon] - Ann Strauss MD [Primary Care Provider] - (Date & Time 12/07/2020 12:00 PM Provider Genoveva Gtz MD Department Family Medicine [facility] ) Diet: Regular Addtl Attending Provider Instructions: Please continue all medications as instructed on discharge list below. Please contact the General Surgery office at to schedule a follow up visit with Dr. Rick. It is recommended that you follow-up with your primary care physician in one week to ensure you are still doing well since returning home. It was a pleasure taking care of you! Please call if you have any questions or problems. You can reach a [facility] hospitalist on duty at [facility] 24 hours a day by calling [phone]. Take care of yourself. Erendira Sandoval DO [facility] Pending Studies at Discharge: No Stand-Alone Forms: My [facility] Medications and DC Order Prescriptions: Continued amoxicillin 500 mg Capsule 2,000 mg PO UD PRN (Reason: DENTAL APPOINTMENT) RF: 0 carvedilol 12.5 mg Tablet 12.5 mg PO BID RF: 0 pravastatin 40 mg Tablet 40 mg PO HS RF: 0 lisinopril 5 mg Tablet 5 mg PO DAILY RF: 0 Systane Ultra 0.4-0.3 % Drops 1 drp OPHTHALMIC (EYE) TID PRN (Reason: Dry Eye(S)) RF: 0 Xarelto 20 mg Tablet 20 mg PO PM RF: 0 Ocuvite Adult 50 Plus 250-5-1 mg Capsule 1 cap PO QAM RF: 0 aspirin 81 mg Tablet,Delayed Release (Dr/Ec) 81 mg PO QAM RF: 0 ascorbic acid (vitamin C) [Vitamin C] 500 mg Tablet 500 mg PO QPM RF: 0 ferrous sulfate 325 mg (65 mg iron) Tablet,Delayed Release (Dr/Ec) 325 mg PO BID RF: 0 pantoprazole 40 mg tablet,delayed release (DR/EC) 20 mg PO DAILY RF: 0 Discharge Orders: Discharge Order (Routine); Ordered 11/30/20 Ordered By: Erendira Meredith/Other Patient Handouts: Abdomen Surg Dc Admission Data Admit Date/Time: 11/27/20 06:26 Attending Provider: Erendira Sandoval Admit Provider: Yury Tello Primary Care Provider: Ann Strauss Other Providers: Yury Tello ; Moe Rick Other Interventions: Discharge Summary Assessment (RN) Last Done: 11/30/20 16:51
[2020-12-01] MEDS ORDERED: RIVAROXABAN 20 MG TAB PO SCH (09:00)
== END 2020-11-30 18:45 | disposition home or self-care (01) | DRG 329 ==
LOC: ED 03:19 → 2N 06:26 → 3W 11-29 23:13
DX: I11.0 Hypertensive heart disease with heart failure; K56.609 Unspecified intestinal obstruction, unspecified as to partial versus complete obstruction; I48.91 Unspecified atrial fibrillation; K55.029 Acute infarction of small intestine, extent unspecified; Z95.810 Presence of automatic (implantable) cardiac defibrillator; K46.0 Unspecified abdominal hernia with obstruction, without gangrene; K92.0 Hematemesis; I25.2 Old myocardial infarction; Z79.01 Long term (current) use of anticoagulants; I25.5 Ischemic cardiomyopathy; E78.5 Hyperlipidemia, unspecified; I50.22 Chronic systolic (congestive) heart failure; Z79.82 Long term (current) use of aspirin; K40.30 Unilateral inguinal hernia, with obstruction, without gangrene, not specified as recurrent